=== PATIENT | male | born 1930 | race Caucasian/White ===

== ENCOUNTER 2019-02-01 21:24 | Inpatient (IN) ==
[2019-02-01] MEDS ORDERED: Ondansetron 4 MG/2 ML VIAL IVP ONE (21:34)
[2019-02-01] MEDS ORDERED: 0.9 % Sodium Chloride 500 ML IVC ONE ×2 (21:53→23:17)
[2019-02-01 22:06] LABS: Basophils # 0.1 K/mcL (0.0-0.2); Basophils % 0.4 %; Eosinophils # 0.1 K/mcL (0.0-0.6); Eosinophils % 0.3 %; Hematocrit 33.7 % (37.5-50.1); Hemoglobin 11.3 g/dL (12.9-16.9); Lymphocytes # 1.3 K/mcL (0.6-4.6); Lymphocytes % 7.2 %; Mean Corpuscular HGB Conc 33.5 g/dL (31.6-35.5); Mean Corpuscular Hemoglobin 34.8 pg (28.0-33.3); Mean Corpuscular Volume 103.7 fL (83.0-100.0); Mean Platelet Volume 11.5 fL (9.4-12.4); Monocytes % 11.1 %; Neutrophils # 14.4 K/mcL (1.6-8.9); Nucleated Red Blood Cells 0.7 /100 WBC (0); Platelet Count 193 K/mcL (140-400); Red Blood Count 3.25 M/mcL (4.19-5.50); Red Cell Distribution Width 19.5 % (11.5-14.5)
[2019-02-01 22:16] LABS: INR 1.2; Prothrombin Time 13.5 Seconds (9.4-12.1)
[2019-02-01 22:19] LABS: Activated Partial Thrombo Time 29.8 Seconds (26.0-36.0)
[2019-02-01 22:29] LABS: Alanine Aminotransferase 17 Units/L (7-52); Albumin 4.2 g/dL (3.5-5.7); Albumin/Globulin Ratio 1.4 (1.1-2.2); Alkaline Phosphatase 65 Units/L (34-104); Aspartate Amino Transferase 18 Units/L (13-39); BUN/Creatinine Ratio 19 (6-26); Bilirubin,Direct 0.1 mg/dL (0.0-0.2); Bilirubin,Indirect 0.8 mg/dL (0.0-1.2); Bilirubin,Total 0.9 mg/dL (0.3-1.0); Blood Urea Nitrogen 27 mg/dL (8-23); Calcium 9.1 mg/dL (8.6-10.3); Carbon Dioxide 22 mEq/L (23-29); Chloride 105 mEq/L (98-107); Creatine Kinase 69 Units/L (30-223); Globulin 2.9 g/dL (2.4-3.5); Glucose 234 mg/dL (70-105); Lipase 18 Units/L (11-82); Magnesium 1.9 mg/dL (1.6-2.6); Osmolality,Calculated 301 (280-300); Phosphorous 2.9 mg/dL (2.7-4.5); Potassium 4.2 mEq/L (3.5-5.1); Sodium 139 mEq/L (136-145); Total Protein 7.1 g/dL (6.4-8.9); Troponin I < 0.03 ng/mL (< 0.04); eGFR For African Americans 58 (> 60); eGFR For Non-African Americans 48 (> 60)
--- NOTE | 2019-02-01 22:40 | Emergency Department Note ---
Disposition Clinical Impression: Elevated lactic acid level Sepsis Qualifiers: Sepsis type: sepsis due to unspecified organism Qualified Code(s): A41.9 - Sepsis, unspecified organism Emesis Qualifiers: Vomiting type: unspecified Vomiting Intractability: non-intractable Nausea p resence: without nausea Qualified Code(s): R11.11 - Vomiting without nausea Pneumonia Qualifiers: Pneumonia type: due to unspecified organism Laterality: bilateral Lung loca tion: lower lobe of lung Qualified Code(s): J18.1 - Lobar pneumonia, unspecified organism CKD (chronic kidney disease) Qualifiers: Chronic kidney disease stage: unspecified stage Qualified Code(s): N18.9 - Chronic kidney disease, unspecified Disposition: Admitted As Inpatient Condition: Fair Time of Disposition: 00:05 General Adult HPI - General Chief complaint: ED Nausea/Vomiting/Diarrhea Stated complaint: Vomiting Time Seen by Provider: 02/01/19 21:29 Limitations: no limitations Nursing Notes Reviewed: Yes Vital Signs Reviewed: Yes - History of Present Illness HPI Narrative: Patient is an 88-year-old male with a past medical history of atrial fibrillation currently on Coumadin, diabetes, and high cholesterol presents to the ED for evaluation of shivering and emesis. According to family at bedside patient lives with her brother who is not currently here. They state that around 4 or 5:00 PM this evening the patient was having dinner and he became cold with chills and had shivering of the upper extremities. He stated that shortly after dinner patient was in bed covered in blankets and the family left the home and one family member was rechecking on the patient and he is found in the bathroom sitting down between the toilet and the bathtub and states that he did not recall if he had fallen but he was sitting up looking around and he required assistance getting up and is normally independent with a walker. He stated the patient has also been weaker than normal over the past couple of hours. No recent sick contacts. Patient admits to a productive cough with green sputum that he states is chronic. He denies any abdominal pain. He had one episode of emesis that was nonbloody and nonbilious. No diarrhea. Denies any abdominal pain. No urinary symptoms. Denies chest pain or shortness of breath. The family is unsure if the patient fell to the ground or if he sat down on the ground due to weakness. The patient himself denies any trauma or injury from a fall and denies any pain at this time. - Related Data Home Medications Medication Instructions Recorded Confirmed Allopurinol [Zyloprim] 200 mg PO DAILY 06/24/16 02/01/19 Furosemide [Lasix] 80 mg PO DAILY 06/24/16 02/01/19 Glimepiride [Amaryl] 1 mg PO QAM 06/24/16 02/01/19 Metformin HCl [Glucophage Xr] 750 mg PO QPM MDD with meal. 06/24/16 02/01/19 Metoprolol Tartrate [Lopressor] 100 mg PO BID 06/24/16 06/29/16 Potassium Chloride [Klor-Con] 20 meq PO DAILY 06/24/16 02/01/19 Aspirin Enteric Coated [Aspirin EC] 81 mg PO DAILY 02/01/19 02/01/19 Loratadine [Claritin] 10 mg PO DAILY PRN 02/01/19 02/01/19 Tamsulosin HCl [Flomax] 0.4 mg PO DAILY 02/01/19 02/01/19 Previous Rx's Medication Instructions Recorded MOM Conc [MILK OF MAGNESIA conc] 10 ml PO DAILY PRN #30 ud.liq 06/29/16 Sennosides/Docusate Sodium [Senna 2 each PO BID #60 tablet 06/29/16 Plus] Warfarin [Coumadin] 5 mg PO 1800 #10 tablet 06/29/16 Allergies Allergy/AdvReac Type Severity Reaction Status Date / Time ciprofloxacin [From Cipro] Allergy Hives Verified 02/01/19 23:28 clindamycin Allergy Hives Verified 06/24/16 21:09 diphenhydramine Allergy Hives Verified 06/24/16 21:09 [From Benadryl] doxycycline AdvReac Nausea Verified 02/01/19 23:28 tamsulosin AdvReac Rash Verified 02/01/19 23:28 All systems ED: reviewed and negative except as stated. Review of Systems: As Per HPI Constitutional: Reports: chills, weakness. Denies: fever ENT ED: Denies: congestion Respiratory: Reports: cough (Productive cough that is chronic). Denies: dyspne a, wheezes, hemoptysis Gastrointestinal: Reports: nausea, vomiting. Denies: abdominal pain, diarrhea, constipation, hematemesis, melena, hematochezia Genitourinary: Denies: urgency, dysuria Musculoskeletal: Denies: back pain, neck pain Integumentary: Denies: rash Neurological: Denies: headache, weakness, numbness Past Medical History - Past Medical History Attestation: Yes The following information was validated with the patient. Medical history: Reports: atrial fibrillation, diabetes, hyperlipidemia, hypertension, kidney stones, other (BPH) Psychiatric history: Reports: no psych history - Social History Smoking Status: Never smoker Smokeless Tobacco Status: No Alcohol use: Reports: none Drug use: Reports: none Physical Exam - General Limitations: no limitations - Head Head exam: atraumatic, normocephalic, normal inspection - Eye Eye exam: Present: normal appearance, PERRL, EOMI - ENT ENT exam: normal exam, normal oropharynx, TM's normal bilaterally - Chest Chest inspection: Present: normal inspection, symmetric chest wall rise - Respiratory Respiratory exam: Present: normal lung sounds bilaterally. Absent: respiratory distress, wheezes - Cardiovascular Cardiovascular exam: Present: tachycardia, +S1, +S2 - Abdominal Exam Abdominal exam: Present: soft, Non-Tender, normal bowel sounds. Absent: tenderness, guarding, rebound, rigidity - Extremities Exam Extremities exam: Present: normal inspection, full ROM, pedal edema (1+ bilaterally). Absent: tenderness - Back Exam Back exam: Present: normal inspection, full ROM. Absent: tenderness, CVA tenderness (R), CVA tenderness (L) - Neurological Exam Neurological exam: Present: alert, other (Oriented x2 to person and place) - Psychiatric Psychiatric exam: Present: normal affect, normal mood - Skin Skin exam: Present: warm, dry, intact, normal color Course Course Narrative: Patient is presenting for evaluation of one episode of emesis as well as mild disorientation and potential fall. The patient is denying any pain on exam he is oriented 2. He is not having any focal neurological deficits at this time. He does have a fever as well as tachycardia. He will undergo a workup with the sepsis protocol and obtain lactic as well as blood cultures as well as imaging of his head and neck to evaluate for trauma and a chest x-ray and urine to evaluate for source of infection. He states hemodynamically stable at this time. We will order him a half liter bolus given that he does have mild edema in the bilateral lower extremities however his lungs sound clear. - Reevaluation(s) Reevaluation #1: Patient had a leukocytosis of 18,000 with leftward shift. INR was 1.2. Chem strip panel appreciated a creatinine of 1.41 which appears to be consistent with patient's baseline in the past. His lactic acid was 3.0. Labs otherwise were unremarkable. Urine was negative for infection his chest x-ray was concerning for pneumonia. Patient was given an additional 500 mL bolus totaling 1 L of normal saline bolus while in the ED. He was started on community-acquired coverage for pneumonia with Rocephin and azithromycin. Discussed the patient's case with the hospitalist on-call, Dr. Ahmadi he agreed to accept the patient. The patient's head CT and CT of the cervical spine were negative for any acute injuries. Time: 00:54 Vital Signs Temperature 101.5 F H 02/01/19 21:24 Pulse Rate 113 02/01/19 21:24 Respiratory Rate 20 02/01/19 21:24 Blood Pressure 143/78 02/01/19 21:24 O2 Sat by Pulse Oximetry 93 02/01/19 21:24 Temperature 100.8 F H 02/01/19 23:35 Pulse Rate 90 02/02/19 00:27 Respiratory Rate 19 02/02/19 00:27 Blood Pressure 111/70 02/02/19 00:27 O2 Sat by Pulse Oximetry 96 02/02/19 00:27 Oxygen Delivery Oxygen Delivery Oximizer Medical Decision Making - Medical Records Medical records reviewed: Yes I reviewed the patient's medical records. - Lab Data Lab results reviewed: Yes I reviewed the patient's lab results. Result diagrams: 02/01/19 21:52 02/01/19 21:52 Lab Results 02/01/19 02/01/19 02/01/19 Range/Units 21:52 21:52 21:52 WBC 18.0 H (4.3-11.1) K/mcL RBC 3.25 L (4.19-5.50) M/mcL Hgb 11.3 L (12.9-16.9) g/dL Hct 33.7 L (37.5-50.1) % MCV 103.7 H (83.0-100.0) fL MCH 34.8 H (28.0-33.3) pg MCHC 33.5 (31.6-35.5) g/dL RDW 19.5 H (11.5-14.5) % Plt Count 193 (140-400) K/mcL MPV 11.5 (9.4-12.4) fL Immature Gran % 1.0 (0-4) % Seg Neutrophils % 80.0 % Lymphocytes % 7.2 % Monocytes % 11.1 % Eosinophils % 0.3 % Basophils % 0.4 % Neutrophils # 14.4 H (1.6-8.9) K/mcL Lymphocytes # 1.3 (0.6-4.6) K/mcL Monocytes # 2.0 H (0.0-1.3) K/mcL Eosinophils # 0.1 (0.0-0.6) K/mcL Basophils # 0.1 (0.0-0.2) K/mcL Nucleated RBCs/100 WBC 0.7 H (0) /100 WBC PT (9.4-12.1) Seconds INR APTT (26.0-36.0) Seconds Sodium 139 (136-145) mEq/L Potassium 4.2 (3.5-5.1) mEq/L Chloride 105 (98-107) mEq/L Carbon Dioxide 22 L (23-29) mEq/L BUN 27 H (8-23) mg/dL Creatinine 1.41 H (0.70-1.30) mg/dL Est GFR ( Amer) 58 L (> 60) Est GFR (Non-Af Amer) 48 L (> 60) BUN/Creatinine Ratio 19 (6-26) Glucose 234 H (70-105) mg/dL Calculated Osmolality 301 H (280-300) Lactic Acid 3.0 H (0.5-2.2) mmol/L Calcium 9.1 (8.6-10.3) mg/dL Phosphorus 2.9 (2.7-4.5) mg/dL Magnesium 1.9 (1.6-2.6) mg/dL Total Bilirubin 0.9 (0.3-1.0) mg/dL Direct Bilirubin 0.1 (0.0-0.2) mg/dL Indirect Bilirubin 0.8 (0.0-1.2) mg/dL AST 18 (13-39) Units/L ALT 17 (7-52) Units/L Alkaline Phosphatase 65 (34-104) Units/L Creatine Kinase 69 (30-223) Units/L Troponin I < 0.03 (< 0.04) ng/mL Serum Total Protein 7.1 (6.4-8.9) g/dL Albumin 4.2 (3.5-5.7) g/dL Globulin 2.9 (2.4-3.5) g/dL Albumin/Globulin Ratio 1.4 (1.1-2.2) Lipase 18 (11-82) Units/L Urine Color (Yellow) Urine Clarity (Clear) Urine pH (5.0-8.0) pH Units Ur Specific [place] (1.010-1.025) Urine Protein (Neg-Trace) mg/dL Urine Glucose (UA) (Normal) mg/dL Urine Ketones (Negative) mg/dL Urine Blood (Negative) Urine Nitrite (Negative) Urine Bilirubin (Negative) Urine Urobilinogen (Normal) mg/dL Ur Leukocyte Esterase (Negative) Ur Culture Indicated? (NO) 02/01/19 02/01/19 Range/Units 21:52 23:06 WBC (4.3-11.1) K/mcL RBC (4.19-5.50) M/mcL Hgb (12.9-16.9) g/dL Hct (37.5-50.1) % MCV (83.0-100.0) fL MCH (28.0-33.3) pg MCHC (31.6-35.5) g/dL RDW (11.5-14.5) % Plt Count (140-400) K/mcL MPV (9.4-12.4) fL Immature Gran % (0-4) % Seg Neutrophils % % Lymphocytes % % Monocytes % % Eosinophils % % Basophils % % Neutrophils # (1.6-8.9) K/mcL Lymphocytes # (0.6-4.6) K/mcL Monocytes # (0.0-1.3) K/mcL Eosinophils # (0.0-0.6) K/mcL Basophils # (0.0-0.2) K/mcL Nucleated RBCs/100 WBC (0) /100 WBC PT 13.5 H (9.4-12.1) Seconds INR 1.2 APTT 29.8 (26.0-36.0) Seconds Sodium (136-145) mEq/L Potassium (3.5-5.1) mEq/L Chloride (98-107) mEq/L Carbon Dioxide (23-29) mEq/L BUN (8-23) mg/dL Creatinine (0.70-1.30) mg/dL Est GFR ( Amer) (> 60) Est GFR (Non-Af Amer) (> 60) BUN/Creatinine Ratio (6-26) Glucose (70-105) mg/dL Calculated Osmolality (280-300) Lactic Acid (0.5-2.2) mmol/L Calcium (8.6-10.3) mg/dL Phosphorus (2.7-4.5) mg/dL Magnesium (1.6-2.6) mg/dL Total Bilirubin (0.3-1.0) mg/dL Direct Bilirubin (0.0-0.2) mg/dL Indirect Bilirubin (0.0-1.2) mg/dL AST (13-39) Units/L ALT (7-52) Units/L Alkaline Phosphatase (34-104) Units/L Creatine Kinase (30-223) Units/L Troponin I (< 0.04) ng/mL Serum Total Protein (6.4-8.9) g/dL Albumin (3.5-5.7) g/dL Globulin (2.4-3.5) g/dL Albumin/Globulin Ratio (1.1-2.2) Lipase (11-82) Units/L Urine Color Yellow (Yellow) Urine Clarity Clear (Clear) Urine pH 6.0 (5.0-8.0) pH Units Ur Specific [place] 1.016 (1.010-1.025) Urine Protein Negative (Neg-Trace) mg/dL Urine Glucose (UA) Normal (Normal) mg/dL Urine Ketones Negative (Negative) mg/dL Urine Blood Negative (Negative) Urine Nitrite Negative (Negative) Urine Bilirubin Negative (Negative) Urine Urobilinogen Normal (Normal) mg/dL Ur Leukocyte Esterase Negative (Negative) Ur Culture Indicated? NO (NO) - Radiology Data Radiology results reviewed: Yes I reviewed the patient's radiology results. Chest X-Ray 02/01/19 21:33 IMPRESSION: Bibasilar airspace disease which could represent pneumonia. Consider follow-up imaging to resolution. Cardiomegaly. D/ / Long Orellana MD / Long Orellana MD Interpreting Provider: Long Orellana MD - EKG Data EKG #1 EKG attestation: Yes I reviewed and interpreted this EKG. EKG results narrative: EKG done at 22:51 shows atrial fibrillation at a rate of 94 bpm. Normal axis. Intervals within normal limits. No signs of ST elevation, depression or new q- waves. Unchanged from EKG performed on June 272015.
[2019-02-01] MEDS ORDERED: Doxycycline 100 MG in 0.9 % Sodium Chloride Mini Bag 100 ML IVPB ONE (23:07)
[2019-02-01] MEDS ORDERED: cefTRIAXone 1,000 MG in Water for inj. (sterile) 10 ML IVP ONE (23:08)
[2019-02-01 23:17] LABS: Bilirubin,Urine Negative (Negative); Blood,Urine Negative (Negative); Clarity,Urine Clear (Clear); Color,Urine Yellow (Yellow); Glucose,Urine (UA) Normal (Normal); Ketones,Urine Negative (Negative); Leukocyte Esterase,Urine Negative (Negative); Nitrite,Urine Negative (Negative); Protein,Urine Negative (Neg-Trace); Specific Gravity,Urine 1.016 (1.010-1.025); Urobilinogen,Urine Normal (Normal)
[2019-02-01] MEDS ORDERED: Azithromycin 500 MG in D5% in Water 250 ML IVPB ONE (23:29)
--- NOTE | 2019-02-02 00:26 | Emergency Department Note ---
Disposition Clinical Impression: Elevated lactic acid level Sepsis Qualifiers: Sepsis type: sepsis due to unspecified organism Qualified Code(s): A41.9 - Sepsis, unspecified organism Emesis Qualifiers: Vomiting type: unspecified Vomiting Intractability: non-intractable Nausea p resence: without nausea Qualified Code(s): R11.11 - Vomiting without nausea Pneumonia Qualifiers: Pneumonia type: due to unspecified organism Laterality: bilateral Lung loca tion: lower lobe of lung Qualified Code(s): J18.1 - Lobar pneumonia, unspecified organism CKD (chronic kidney disease) Qualifiers: Chronic kidney disease stage: unspecified stage Qualified Code(s): N18.9 - Chronic kidney disease, unspecified Disposition: Admitted As Inpatient Condition: Fair Referrals: NONE,PCP [Primary Care Provider] - Time of Disposition: 00:05 General Adult HPI - General Chief complaint: ED Nausea/Vomiting/Diarrhea Stated complaint: Vomiting Time Seen by Provider: 02/01/19 21:29 Source: patient, family Limitations: no limitations Nursing Notes Reviewed: Yes Vital Signs Reviewed: Yes - History of Present Illness Pain Scale: 0 - Related Data Home Medications Medication Instructions Recorded Confirmed Allopurinol [Zyloprim] 200 mg PO DAILY 06/24/16 02/01/19 Furosemide [Lasix] 80 mg PO DAILY 06/24/16 02/01/19 Glimepiride [Amaryl] 1 mg PO QAM 06/24/16 02/01/19 Metformin HCl [Glucophage Xr] 750 mg PO QPM MDD with meal. 06/24/16 02/01/19 Metoprolol Tartrate [Lopressor] 100 mg PO BID 06/24/16 06/29/16 Potassium Chloride [Klor-Con] 20 meq PO DAILY 06/24/16 02/01/19 Aspirin Enteric Coated [Aspirin EC] 81 mg PO DAILY 02/01/19 02/01/19 Loratadine [Claritin] 10 mg PO DAILY PRN 02/01/19 02/01/19 Tamsulosin HCl [Flomax] 0.4 mg PO DAILY 02/01/19 02/01/19 Previous Rx's Medication Instructions Recorded MOM Conc [MILK OF MAGNESIA conc] 10 ml PO DAILY PRN #30 ud.liq 06/29/16 Sennosides/Docusate Sodium [Senna 2 each PO BID #60 tablet 06/29/16 Plus] Warfarin [Coumadin] 5 mg PO 1800 #10 tablet 06/29/16 Allergies Allergy/AdvReac Type Severity Reaction Status Date / Time ciprofloxacin [From Cipro] Allergy Hives Verified 02/01/19 23:28 clindamycin Allergy Hives Verified 06/24/16 21:09 diphenhydramine Allergy Hives Verified 06/24/16 21:09 [From Benadryl] doxycycline AdvReac Nausea Verified 02/01/19 23:28 tamsulosin AdvReac Rash Verified 02/01/19 23:28 Constitutional: Reports: chills, weakness. Denies: fever ENT ED: Denies: congestion Respiratory: Reports: cough (Productive cough that is chronic). Denies: dyspnea, wheezes, hemoptysis Gastrointestinal: Reports: nausea, vomiting. Denies: abdominal pain, diarrhea, constipation, hematemesis, melena, hematochezia Genitourinary: Denies: urgency, dysuria Musculoskeletal: Denies: back pain, neck pain Integumentary: Denies: rash Neurological: Denies: headache, weakness, numbness Past Medical History - Past Medical History Medical history: Reports: atrial fibrillation, diabetes, hyperlipidemia, hypertension, kidney stones, other Psychiatric history: Reports: no psych history - Social History Smoking Status: Never smoker Smokeless Tobacco Status: No Alcohol use: Reports: none Drug use: Reports: none Physical Exam - General Limitations: no limitations Course Vital Signs Temperature 101.5 F H 02/01/19 21:24 Pulse Rate 113 02/01/19 21:24 Respiratory Rate 20 02/01/19 21:24 Blood Pressure 143/78 02/01/19 21:24 O2 Sat by Pulse Oximetry 93 02/01/19 21:24 Temperature 100.8 F H 02/01/19 23:35 Pulse Rate 90 02/01/19 23:35 Respiratory Rate 16 02/01/19 23:35 Blood Pressure 102/61 02/01/19 23:35 O2 Sat by Pulse Oximetry 89 02/01/19 23:35 Oxygen Delivery Oxygen Delivery Nasal Cannula,Oximizer Medical Decision Making - Medical Records Medical records reviewed: Yes I reviewed the patient's medical records. - Lab Data Lab results reviewed: Yes I reviewed the patient's lab results. Result diagrams: 02/01/19 21:52 02/01/19 21:52 Lab Results 02/01/19 02/01/19 02/01/19 Range/Units 21:52 21:52 21:52 WBC 18.0 H (4.3-11.1) K/mcL RBC 3.25 L (4.19-5.50) M/mcL Hgb 11.3 L (12.9-16.9) g/dL Hct 33.7 L (37.5-50.1) % MCV 103.7 H (83.0-100.0) fL MCH 34.8 H (28.0-33.3) pg MCHC 33.5 (31.6-35.5) g/dL RDW 19.5 H (11.5-14.5) % Plt Count 193 (140-400) K/mcL MPV 11.5 (9.4-12.4) fL Immature Gran % 1.0 (0-4) % Seg Neutrophils % 80.0 % Lymphocytes % 7.2 % Monocytes % 11.1 % Eosinophils % 0.3 % Basophils % 0.4 % Neutrophils # 14.4 H (1.6-8.9) K/mcL Lymphocytes # 1.3 (0.6-4.6) K/mcL Monocytes # 2.0 H (0.0-1.3) K/mcL Eosinophils # 0.1 (0.0-0.6) K/mcL Basophils # 0.1 (0.0-0.2) K/mcL Nucleated RBCs/100 WBC 0.7 H (0) /100 WBC PT (9.4-12.1) Seconds INR APTT (26.0-36.0) Seconds Sodium 139 (136-145) mEq/L Potassium 4.2 (3.5-5.1) mEq/L Chloride 105 (98-107) mEq/L Carbon Dioxide 22 L (23-29) mEq/L BUN 27 H (8-23) mg/dL Creatinine 1.41 H (0.70-1.30) mg/dL Est GFR ( Amer) 58 L (> 60) Est GFR (Non-Af Amer) 48 L (> 60) BUN/Creatinine Ratio 19 (6-26) Glucose 234 H (70-105) mg/dL Calculated Osmolality 301 H (280-300) Lactic Acid 3.0 H (0.5-2.2) mmol/L Calcium 9.1 (8.6-10.3) mg/dL Phosphorus 2.9 (2.7-4.5) mg/dL Magnesium 1.9 (1.6-2.6) mg/dL Total Bilirubin 0.9 (0.3-1.0) mg/dL Direct Bilirubin 0.1 (0.0-0.2) mg/dL Indirect Bilirubin 0.8 (0.0-1.2) mg/dL AST 18 (13-39) Units/L ALT 17 (7-52) Units/L Alkaline Phosphatase 65 (34-104) Units/L Creatine Kinase 69 (30-223) Units/L Troponin I < 0.03 (< 0.04) ng/mL Serum Total Protein 7.1 (6.4-8.9) g/dL Albumin 4.2 (3.5-5.7) g/dL Globulin 2.9 (2.4-3.5) g/dL Albumin/Globulin Ratio 1.4 (1.1-2.2) Lipase 18 (11-82) Units/L Urine Color (Yellow) Urine Clarity (Clear) Urine pH (5.0-8.0) pH Units Ur Specific [place] (1.010-1.025) Urine Protein (Neg-Trace) mg/dL Urine Glucose (UA) (Normal) mg/dL Urine Ketones (Negative) mg/dL Urine Blood (Negative) Urine Nitrite (Negative) Urine Bilirubin (Negative) Urine Urobilinogen (Normal) mg/dL Ur Leukocyte Esterase (Negative) Ur Culture Indicated? (NO) 02/01/19 02/01/19 Range/Units 21:52 23:06 WBC (4.3-11.1) K/mcL RBC (4.19-5.50) M/mcL Hgb (12.9-16.9) g/dL Hct (37.5-50.1) % MCV (83.0-100.0) fL MCH (28.0-33.3) pg MCHC (31.6-35.5) g/dL RDW (11.5-14.5) % Plt Count (140-400) K/mcL MPV (9.4-12.4) fL Immature Gran % (0-4) % Seg Neutrophils % % Lymphocytes % % Monocytes % % Eosinophils % % Basophils % % Neutrophils # (1.6-8.9) K/mcL Lymphocytes # (0.6-4.6) K/mcL Monocytes # (0.0-1.3) K/mcL Eosinophils # (0.0-0.6) K/mcL Basophils # (0.0-0.2) K/mcL Nucleated RBCs/100 WBC (0) /100 WBC PT 13.5 H (9.4-12.1) Seconds INR 1.2 APTT 29.8 (26.0-36.0) Seconds Sodium (136-145) mEq/L Potassium (3.5-5.1) mEq/L Chloride (98-107) mEq/L Carbon Dioxide (23-29) mEq/L BUN (8-23) mg/dL Creatinine (0.70-1.30) mg/dL Est GFR ( Amer) (> 60) Est GFR (Non-Af Amer) (> 60) BUN/Creatinine Ratio (6-26) Glucose (70-105) mg/dL Calculated Osmolality (280-300) Lactic Acid (0.5-2.2) mmol/L Calcium (8.6-10.3) mg/dL Phosphorus (2.7-4.5) mg/dL Magnesium (1.6-2.6) mg/dL Total Bilirubin (0.3-1.0) mg/dL Direct Bilirubin (0.0-0.2) mg/dL Indirect Bilirubin (0.0-1.2) mg/dL AST (13-39) Units/L ALT (7-52) Units/L Alkaline Phosphatase (34-104) Units/L Creatine Kinase (30-223) Units/L Troponin I (< 0.04) ng/mL Serum Total Protein (6.4-8.9) g/dL Albumin (3.5-5.7) g/dL Globulin (2.4-3.5) g/dL Albumin/Globulin Ratio (1.1-2.2) Lipase (11-82) Units/L Urine Color Yellow (Yellow) Urine Clarity Clear (Clear) Urine pH 6.0 (5.0-8.0) pH Units Ur Specific [place] 1.016 (1.010-1.025) Urine Protein Negative (Neg-Trace) mg/dL Urine Glucose (UA) Normal (Normal) mg/dL Urine Ketones Negative (Negative) mg/dL Urine Blood Negative (Negative) Urine Nitrite Negative (Negative) Urine Bilirubin Negative (Negative) Urine Urobilinogen Normal (Normal) mg/dL Ur Leukocyte Esterase Negative (Negative) Ur Culture Indicated? NO (NO) - Radiology Data Radiology results reviewed: Yes I reviewed the patient's radiology results. Chest X-Ray 02/01/19 21:33 IMPRESSION: Bibasilar airspace disease which could represent pneumonia. Consider follow-up imaging to resolution. Cardiomegaly. D/ / Long Orellana MD / Long Orellana MD Interpreting Provider: Long Orellana MD Cervical Spine CT 02/01/19 21:51 IMPRESSION: No acute abnormality of the cervical spine. D/ / Alec Dee MD / Alec Dee MD Interpreting Provider: Alec Dee MD Head CT 02/01/19 21:51 IMPRESSION: No acute intracranial abnormality. 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 D/ / Abrahan Spear / Abrahan Spear Interpreting Provider: Abrahan Spear - EKG Data EKG #1 EKG attestation: Yes I reviewed and interpreted this EKG. EKG results narrative: EKG shows atrial fibrillation with ventricular rate of 94. No significant ST segment elevation or depression. Critical Care Time Critical Care Time: Yes Total Critical Care Time: 35 Attestation: Critical care performed: Time is exclusive of separately billable procedures. Time includes: direct patient care, patient reassessment, coordination of patient care, interpretation of data (laboratory data, radiology data, and respiratory data), review of patient's medical records, medical consultation and documentation of patient care. Procedures included in critical care time: Procedures excluded from critical care time: Attestation Statement - Attestation Attestation: I, Laci Pena MD, personally evaluated this patient and discussed their management with the resident physician. I reviewed the resident's note and agree with the documented findings, medical decision making, and plan of care. I reviewed the residents documentation and agree with the residents assessment and plan of care. I have personally had face to face time with the patient. I personally supervised and was present for the quesada/critical portions of the following procedures completed by the resident: EKG interpretation. 88-year-old male presents to the emergency department with a complaint of some chills and shaking and generalized weakness which started earlier this evening. Family found patient sitting on the bathroom floor between the toilet and the ba thtub. He was not confused but was unable to get up. He seemed to have panting respirations. Here in the department the patient is awake alert and oriented. He denies any chest pain or shortness of breath. He did have one episode of nausea and some vomiting that no further vomiting. He denies abdominal pain. He denies hitting his head. He is on Coumadin for chronic atrial fibrillation. On examination patient is a well-developed obese elderly male in no acute distress. He is alert and oriented 3. There is no cyanosis or diaphoresis. Head is atraumatic. Mucous membranes are moist. Neck is supple. Breath sounds are clear and equal bilaterally. Heart irregularly irregular with a normal rate. Abdomen is soft and nontender with normal bowel sounds. No gross focal neurological deficits. EKG shows atrial fibrillation with ventricular rate of 94. No significant ST segment elevation or depression. Chest x-ray shows bibasilar airspace disease which could represent pneumonia. CT of the head and cervical spine was negative. Labs reviewed. WBC 18. Lactic acid 3.0. Blood cultures obtained. Antibiotics initiated for community-acquired pneumonia. Patient did not receive the 30 mL/kg fluid bolus due to his age and chronic atrial fibrillation. He has not been hypotensive. Repeat lactic acid was ordered. The hospitalist, Dr. Ahmadi, was consulted and accepted admission of the patient.
[2019-02-02] MEDS ORDERED: Ondansetron 4 MG/2 ML VIAL IVP PRN (00:31)
[2019-02-02] MEDS ORDERED: Naloxone 0.4 MG/ML INJ IVP PRN (00:31)
[2019-02-02] MEDS ORDERED: *HR* Dextrose 50 % in Water (Syg) 50 ML SYRINGE IVP PRN (00:38)
[2019-02-02] MEDS ORDERED: Dextrose Gel 15 GM/37.5 ML TUBE PO PRN ×2 (00:38)
[2019-02-02] MEDS ORDERED: D5% in Water 1,000 ML IVC PRN (00:38)
--- NOTE | 2019-02-02 01:45 | Internal Med History&Physical ---
Date of Encounter: 02/02/19 Time of Encounter: 01:40 Internal Medicine - H&P: HPI Chief complaint: Chills History of present illness: Mr. Acosta is a 88 year old male with a past medical history of atrial fibrillation currently on Coumadin, diabetes, and high cholesterol presents to the ED for evaluation of shivering and vomiting. They state that around 4 or 5:00 PM this evening the patient was having dinner and suddenly became cold with chills and had shivering of the upper extremities. Patient went to bed shortly thereafter and covered himself in blankets . Soon after that patient went to the restroom and was subsequently found in the bathroom sitting down wedged between the toilet and bathtub. Patient states that he did not lose consciousness but slid down and could not get up. He is normally independent with a walker. He stated the has also been weaker than normal over the past couple of hours. No recent sick contacts. Patient admits to a productive cough with green sputum but states that it is chronic. He denies any abdominal pain. He had one episode of emesis that was nonbloody and nonbilious shortly after he was helped up in the bathroom. No diarrhea. Denies any abdominal pain. No urinary symptoms. Denies chest pain or shortness of breath. The family is unsure if the patient fell to the ground or if he sat down on the ground due to weakness. The patient himself denies any trauma or injury from a fall and denies any pain at this time. Family members noted some confusion on the way to the hospital. After initial assessment on arrival patient was found to be febrile with a temperature of 100.8; blood pressure 143/78 and heart rate of 113. Patient had a leukocytosis of 18.0 INR was 1.2. ; creatinine of 1.41 which appears to be consistent with patient's baseline in the past. His lactic acid was 3.0. Labs otherwise were unremarkable. Urine was negative for infection his chest x-ray was concerning for pneumonia. The patient's head CT and CT of the cervical spine were negative for any acute injuries. Patient was given an additional 500 mL bolus totaling 1 L of normal saline bolus while in the ED. He was started on community-acquired coverage for pneumonia with Rocephin and azithromycin. Past Med Surg Social Fam HX - Past Medical History Medical history: atrial fibrillation, diabetes, hyperlipidemia, hypertension, kidney stones, other Additional medical history: rhabodymylisis Psychiatric history: no psych history - Past Surgical History Additional surgical history: left shoulder replacement in 2007, right shoulder in - Social History Smoking Status: Never smoker Smokeless Tobacco Status: No Alcohol use: none Drug use: none Internal Medicine - H&P: Meds Allopurinol [Zyloprim] 200 mg PO DAILY 06/24/16 [History] Furosemide [Lasix] 80 mg PO DAILY 06/24/16 [History] Glimepiride [Amaryl] 1 mg PO QAM 06/24/16 [History] Metformin HCl [Glucophage Xr] 750 mg PO QPM MDD with meal. 06/24/16 [History] Metoprolol Tartrate [Lopressor] 100 mg PO BID 06/24/16 [History] Potassium Chloride [Klor-Con] 20 meq PO DAILY 06/24/16 [History] MOM Conc [MILK OF MAGNESIA conc] 10 ml PO DAILY PRN #30 [id number] 06/29/16 [Rx] Sennosides/Docusate Sodium [Senna Plus] 2 each PO BID #60 tablet 06/29/16 [Rx] Warfarin [Coumadin] 5 mg PO 1800 #10 tablet 06/29/16 [Rx] Aspirin Enteric Coated [Aspirin EC] 81 mg PO DAILY 02/01/19 [History] Loratadine [Claritin] 10 mg PO DAILY PRN 02/01/19 [History] Tamsulosin HCl [Flomax] 0.4 mg PO DAILY 02/01/19 [History] Allergy/AdvReac Type Severity Reaction Status Date / Time ciprofloxacin [From Cipro] Allergy Hives Verified 02/01/19 23:28 clindamycin Allergy Hives Verified 06/24/16 21:09 diphenhydramine Allergy Hives Verified 06/24/16 21:09 [From Benadryl] doxycycline AdvReac Nausea Verified 02/01/19 23:28 tamsulosin AdvReac Rash Verified 02/01/19 23:28 All Systems PM: A 10-system review of systems was performed and is negative for pertinent findings except as documented above in the HPI. - Constitutional Constitutional: no chills, no fever(s), no night sweats - EENT Eyes: no change in vision, no discharge, no pain, no photophobia Ears: no ear discharge, no ear pain, no tinnitus Nose, mouth and throat: no dysphagia, no nasal discharge, no neck pain, no sore throat - Cardiovascular Cardiovascular ROS IM: no chest pain, no diaphoresis, no dyspnea, no lightheadedness, no palpitations, no syncope - Respiratory Respiratory: no cough, no dyspnea, no wheezing, no excessive phlegm production - Gastrointestinal Gastrointestinal: no abdominal pain, no diarrhea, no hematemesis, no hematochezia, no melena, no nausea, no vomiting - Musculoskeletal Musculoskeletal ROS IM: no numbness, no tingling - Integumentary Integumentary IM: no rash, no unusual bruising - Neurological Neurological ROS: no confusion, no convulsions, no focal weakness, no numbness, no tingling, no tremor(s) - Hematologic/Lymphatic Hematologic/Lymphatic: no easy bruising - Constitutional Vitals: Temp Pulse Resp BP Pulse Ox 97.6 F 88 16 110/61 94 02/02/19 01:26 02/02/19 01:26 02/02/19 01:26 02/02/19 01:02/02/19 01:26 Exam: General: Alert and oriented 3 Skin:Normal color, no rash, no lesions. HEENT:EOM, pupils equal, round and reactive. Cardiovascular:Normal S1 & S2, no rubs, murmurs or gallops. No JVD. Pulse r egular. Lungs:Normal breath sounds, no wheezes or crackles. Abdomen:Soft, non-tender, no rigidity. Extremities:No deformity, no edema or tenderness, no joint swelling or clubbing. Neurological:Normal cognition and motor skills. Pulses:Carotid and radial pulses normal +2. Rest of the physical exam is non contributory Internal Med - H&P Results - Labs CBC & Chem 7: 02/02/19 04:30 02/02/19 04:30 Labs: Short CBC 02/01/19 Range/Units 21:52 WBC 18.0 H (4.3-11.1) K/mcL Hgb 11.3 L (12.9-16.9) g/dL Hct 33.7 L (37.5-50.1) % Plt Count 193 (140-400) K/mcL Neutrophils # 14.4 H (1.6-8.9) K/mcL BMP 02/01/19 21:52 Sodium 139 Potassium 4.2 Chloride 105 Carbon Dioxide 22 L BUN 27 H Creatinine 1.41 H Glucose 234 H Calcium 9.1 Cardiac Enzymes 02/01/19 Range/Units 21:52 Troponin I < 0.03 (< 0.04) ng/mL Liver Function 02/01/19 Range/Units 21:52 Total Bilirubin 0.9 (0.3-1.0) mg/dL Direct Bilirubin 0.1 (0.0-0.2) mg/dL AST 18 (13-39) Units/L ALT 17 (7-52) Units/L Alkaline Phosphatase 65 (34-104) Units/L Albumin 4.2 (3.5-5.7) g/dL Urine 02/01/19 Range/Units 23:06 Urine Color Yellow (Yellow) Urine Clarity Clear (Clear) Urine pH 6.0 (5.0-8.0) pH Units Ur Specific [place] 1.016 (1.010-1.025) Urine Protein Negative (Neg-Trace) mg/dL Urine Glucose (UA) Normal (Normal) mg/dL - Impressions ITS Impressions Chest X-Ray 02/01/19 21:33 IMPRESSION: Bibasilar airspace disease which could represent pneumonia. Consider follow-up imaging to resolution. Cardiomegaly. D/ / Long Orellana MD / Long Orellana MD Interpreting Provider: Long Orellana MD Cervical Spine CT 02/01/19 21:51 IMPRESSION: No acute abnormality of the cervical spine. D/ / Alec Dee MD / Alec Dee MD Interpreting Provider: Alec Dee MD Head CT 02/01/19 21:51 IMPRESSION: No acute intracranial abnormality. [id number] chronic small ischemic disease is involutional changes. D/ / Abrahan Spear / Abrahan Spear Interpreting Provider: Abrahan Spear - Assessment and Plan (1) Pneumonia Current Visit: Yes Status: Acute Assessment and plan: Patient presenting with fever, leukocytosis and chest x-ray showing bibasilar airspace disease possibly representing pneumonia. Found to be mildly hypoxemic in the high 80s on room air in the ED. Patient started on azithromycin and ceftriaxone. -Continue antibiotics -Follow-up blood cultures and urine antigens -Continue supportive care Qualifiers: Pneumonia type: due to unspecified organism Laterality: bilateral Lung location: lower lobe of lung Qualified Code(s): J18.1 - Lobar pneumonia, unspecified organism (2) Elevated lactic acid level Current Visit: Yes Status: Acute Assessment and plan: Elevated lactic acid of 3.0. Patient received a total of 1 L fluid bolus in the ED. Repeat lactic acid 2.9 -We will give an additional 500 liter fluid bolus challenge -Recheck lactic acid in the morning (3) Emesis Current Visit: Yes Status: Acute Assessment and plan: Antiemetics as needed. Qualifiers: Vomiting type: unspecified Vomiting Intractability: non-intractable Nausea presence: without nausea Qualified Code(s): R11.11 - Vomiting without nausea (4) Acute kidney injury Current Visit: No Status: Chronic Assessment and plan: Patient creatinine found to be 1.41. Baseline appears to be closer to 1.2. -Any fluid support and reassess (5) Anemia Current Visit: No Status: Chronic Assessment and plan: Macrocytic anemia. Appears to be chronic and at baseline. We will monitor. Qualifiers: Anemia type: unspecified type Qualified Code(s): D64.9 - Anemia, unspecified (6) Atrial fibrillation Current Visit: No Status: Chronic Assessment and plan: History of atrial fibrillation rate controlled on anticoagulation. -Continue metoprolol. -Continue warfarin with pharmacy to dose. Qualifiers: Atrial fibrillation type: chronic Qualified Code(s): I48.2 - Chronic atrial fibrillation (7) Diabetes mellitus Current Visit: No Status: Chronic Assessment and plan: History of type 2 diabetes. Blood glucose 234. -We will start patient on sliding scale plus basal insulin with blood glucose checks. 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 Repeat lactic acid at 2.9 from 3. -We will give an additional 500 mg fluid bolus and resume maintenance fluids -Continue antibiotics. (9) DVT prophylaxis Current Visit: No Status: Acute Assessment and plan: Patient currently on warfarin. INR found to be 1.2 - Time Spent With Patient Total time spent is greater than 50% in coordination of care (as documented) at patient's floor/unit and/or counseling patient:
[2019-02-02] MEDS: Insulin DETEMIR 100 UNIT/ML X5UNITS SQ SCH ×2 (02:19→22:29)
[2019-02-02] MEDS: Insulin LISPRO 300 UNITS/3 ML VIAL SQ SCH ×4 (02:20→16:04)
[2019-02-02] MEDS: 0.9 % Sodium Chloride 1,000 ML IVC SCH ×2 (02:21→16:04)
[2019-02-02 05:27] LABS: Basophils % 0.2 %; Eosinophils % 0.1 %; Hematocrit 31.3 % (37.5-50.1); Hemoglobin 10.2 g/dL (12.9-16.9); Immature Granulocytes % 0.9 % (0-4); Lymphocytes # 1.9 K/mcL (0.6-4.6); Lymphocytes % 11.1 %; Mean Corpuscular HGB Conc 32.6 g/dL (31.6-35.5); Mean Corpuscular Hemoglobin 35.3 pg (28.0-33.3); Mean Corpuscular Volume 108.3 fL (83.0-100.0); Mean Platelet Volume 12.1 fL (9.4-12.4); Monocytes % 17.3 %; Neutrophils # 12.2 K/mcL (1.6-8.9); Nucleated Red Blood Cells 0.5 /100 WBC (0); Platelet Count 176 K/mcL (140-400); Red Blood Count 2.89 M/mcL (4.19-5.50); Red Cell Distribution Width 19.5 % (11.5-14.5); Segmented Neutrophils % 70.4 %; White Blood Count 17.4 K/mcL (4.3-11.1)
[2019-02-02 05:30] LABS: INR 1.2; Prothrombin Time 13.6 Seconds (9.4-12.1)
[2019-02-02 05:53] LABS: Albumin 3.8 g/dL (3.5-5.7); Albumin/Globulin Ratio 1.6 (1.1-2.2); Bilirubin,Total 0.6 mg/dL (0.3-1.0); Calcium 8.4 mg/dL (8.6-10.3); Globulin 2.4 g/dL (2.4-3.5); Potassium 4.1 mEq/L (3.5-5.1); Total Protein 6.2 g/dL (6.4-8.9); Troponin I 0.03 ng/mL (< 0.04)
[2019-02-02] MEDS ORDERED: Loratadine 10 MG TABLET PO PRN (08:56)
--- NOTE | 2019-02-02 08:56 | Event Note ---
Date of Encounter: 02/02/19 Time of Encounter: 08:48 Mr. Acosta is a 88 year old male with a past medical history of atrial fibrillation currently on Coumadin, diabetes, and high cholesterol presents to the ED for evaluation of shivering and vomiting. After initial assessment on arrival patient was found to be febrile with a temperature of 100.8; blood pressure 143/78 and heart rate of 113. Patient had a leukocytosis of 18.0 INR was 1.2. ; creatinine of 1.41 which appears to be consistent with patient's baseline in the past. His lactic acid was 3.0. Labs otherwise were unremarkable. Urine was negative for infection his chest x-ray was concerning for pneumonia. The patient's head CT and CT of the cervical spine were negative for any acute injuries. Patient was given an additional 500 mL bolus totaling 1 L of normal saline bolus while in the ED. He was started on community-acquired coverage for pneumonia with Rocephin and azithromycin. (1) possible bacterial Pneumonia, he had pneumovaccine, flu shots, no hx of recent PNA, conitnue current ATB Current Visit: Yes Status: Acute Assessment and plan: Patient presenting with fever, leukocytosis and chest x-ray showing bibasilar airspace disease possibly representing pneumonia. Found to be mildly hypoxemic in the high 80s on room air in the ED. Patient started on azithromycin and ceftriaxone. -Continue antibiotics -Follow-up blood cultures and urine antigens -Continue supportive care Qualifiers: Pneumonia type: due to unspecified organism Laterality: bilateral Lung location: lower lobe of lung Qualified Code(s): J18.1 - Lobar pneumonia, unspecified organism (2) severe sepsis with T100.8, WBC 18K, HR 113, Elevated lactic acid level from pneumonia, improving Current Visit: Yes Status: Acute Assessment and plan: Elevated lactic acid of 3.0. Patient received a total of 1 L fluid bolus in the ED. Repeat lactic acid 2.9 -We will give an additional 500 liter fluid bolus challenge -Recheck lactic acid in the morning (3) Emesis, resolved Current Visit: Yes Status: Acute Assessment and plan: Antiemetics as needed. 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 Baseline appears to be closer to 1.2. -Any fluid support and reassess (5) Anemia Current Visit: No Status: Chronic Assessment and plan: Macrocytic anemia. Appears to be chronic and at baseline. We will monitor. Qualifiers: Anemia type: unspecified type Qualified Code(s): D64.9 - Anemia, unspecified (6) Atrial fibrillation Current Visit: No Status: Chronic Assessment and plan: History of atrial fibrillation rate controlled on anticoagulation. -Continue metoprolol. -Continue warfarin with pharmacy to dose. Qualifiers: Atrial fibrillation type: chronic Qualified Code(s): I48.2 - Chronic atrial fibrillation (7) Diabetes mellitus Current Visit: No Status: Chronic Assessment and plan: History of type 2 diabetes. Blood glucose 234. -We will start patient on sliding scale plus basal insulin with blood glucose checks. Qualifiers: Diabetes mellitus type: type 2 Diabetes mellitus tank terminal gauger insulin use: without tank terminal gauger use Diabetes mellitus complication status: without complication Qualified Code(s): E11.9 - Type 2 diabetes mellitus without complications (8) Obesity with BMI 35 (9) DVT prophylaxis Current Visit: No Status: Acute Assessment and plan: Patient currently on warfarin. INR found to be 1.2
[2019-02-02] MEDS: Aspirin Enteric Coated 81 MG Tablet PO SCH (09:22)
[2019-02-02] MEDS: cefTRIAXone 1,000 MG in Water for inj. (sterile) 10 ML IVP SCH (09:23)
[2019-02-02] MEDS: Azithromycin 500 MG in D5% in Water 250 ML IVPB SCH (09:25)
[2019-02-02] MEDS: *HR* Glimepiride 2 MG TABLET PO SCH (09:29)
--- NOTE | 2019-02-02 14:40 | Electrocardiograph Report ---
[address] [address] Test Date: 2019-02-01 Pat Name: Israle Acosta Department: [id number] Room: 2A14 Gender: M Weed Eradicator: : 1930 Requested By: Steve Christine Order Number: [id number] Reading MD: Andrea Lopez Measurements Intervals [place] Rate: 94 P: [place]: QRS: 132 QRSD: 102 T: 12 QT: 359 QTc: 449 Interpretive Statements Atrial fibrillation Right axis deviation Borderline low voltage, extremity leads BASELINE ARTIFACT Electronically Signed On 02-02-2019 14:38:56 EDT by Andrea Lopez
[2019-02-02] MEDS ORDERED: *HR* Warfarin 5 MG TABLET PO SCH (18:00)
[2019-02-02] MEDS ORDERED: Warfarin perPT PO PRN (18:00)
[2019-02-02] MEDS ORDERED: *HR* Warfarin 5 MG TABLET PO ONE (18:00)
[2019-02-02] MEDS ORDERED: cefTRIAXone 1,000 MG in Water for inj. (sterile) 10 ML IVP SCH (20:00)
[2019-02-02] MEDS ORDERED: Azithromycin 500 MG in D5% in Water 250 ML IVPB SCH (20:00)
[2019-02-03 06:00] LABS: Basophils % 0.2 %; Eosinophils # 0.1 K/mcL (0.0-0.6); Eosinophils % 0.8 %; Hematocrit 29.1 % (37.5-50.1); Hemoglobin 9.1 g/dL (12.9-16.9); Lymphocytes # 1.8 K/mcL (0.6-4.6); Lymphocytes % 20.6 %; Mean Corpuscular HGB Conc 31.3 g/dL (31.6-35.5); Mean Corpuscular Hemoglobin 34.5 pg (28.0-33.3); Mean Corpuscular Volume 110.2 fL (83.0-100.0); Mean Platelet Volume 12.1 fL (9.4-12.4); Monocytes # 1.9 K/mcL (0.0-1.3); Monocytes % 21.9 %; Neutrophils # 4.8 K/mcL (1.6-8.9); Nucleated Red Blood Cells 0.8 /100 WBC (0); Platelet Count 146 K/mcL (140-400); Red Blood Count 2.64 M/mcL (4.19-5.50); Red Cell Distribution Width 19.8 % (11.5-14.5); Segmented Neutrophils % 55.5 %
[2019-02-03 06:08] LABS: White Blood Count 8.7 K/mcL (4.3-11.1)
[2019-02-03 06:16] LABS: INR 1.2; Prothrombin Time 13.7 Seconds (9.4-12.1)
[2019-02-03 06:19] LABS: Calcium 7.9 mg/dL (8.6-10.3); Magnesium 2.1 mg/dL (1.6-2.6)
[2019-02-03 06:26] LABS: Anisocytosis 1+ (Not Present); Hypochromasia Present (Not Present); Macrocytosis Present (Not Present); Platelet Estimate Decreased (Normal)
[2019-02-03 06:27] LABS: Reactive Lymphocytes Present (Not Present)
[2019-02-03] MEDS: cefTRIAXone 1,000 MG in Water for inj. (sterile) 10 ML IVP SCH (07:37)
[2019-02-03] MEDS: Aspirin Enteric Coated 81 MG Tablet PO SCH (07:38)
[2019-02-03] MEDS: Insulin LISPRO 300 UNITS/3 ML VIAL SQ SCH ×3 (07:38→15:42)
[2019-02-03] MEDS: *HR* Glimepiride 2 MG TABLET PO SCH (07:38)
[2019-02-03] MEDS: Azithromycin 500 MG in D5% in Water 250 ML IVPB SCH (07:39)
[2019-02-03] MEDS: Furosemide 40 MG TABLET PO SCH (07:55)
[2019-02-03] MEDS ORDERED: Azithromycin 250 MG TABLET PO SCH (09:00)
--- NOTE | 2019-02-03 10:47 | Internal Med Progress Note ---
Hospitalist Progress Note - Encounter Date of Encounter: 02/03/19 Time of Encounter: 10:46 - Subjective Interval History: I have seen and evaluated the patient at bedside. patient reports feeling weak, stated the tremors he had when he presented to the ED have resolved. denies chest pain, nausea, vomiting or shortness of breath. - Exam Vitals: Temp Pulse Resp BP Pulse Ox 97.7 F 89 16 113/63 95 02/03/19 07:10 02/03/19 07:10 02/03/19 07:10 02/03/19 07:10 02/03/19 07:10 Exam: Vitals: Reviewed General: Alert and oriented x4. In mild distress due to generalized weakness Cardiovascular: RRR, normal S1 & S2, no rubs, murmurs or gallops. Lungs: CTA b/l, no wheezes or crackles. Abdomen: Obese, soft, non-tender, no rigidity. Extremities: Warmth, and mild erythema on the left lower extr, no tenderness to touch. Neurological: Normal cognition and motor skills. Rest of the physical exam is non contributory - Assessment and Plan (1) Acute kidney injury Current Visit: No Status: Chronic Assessment and Plan: kidney function at baseline when compared with previous admissions. patient has received 3 litters of fluids replacement. will resume furosemide at a lower dose. will re-assess kidney function tomorrow morning. (2) Atrial fibrillation Current Visit: No Status: Chronic Assessment and Plan: rate controlled on a bb, on warfarin per pharmacy protocol. (3) Diabetes mellitus Current Visit: No Status: Chronic Assessment and Plan: blood sugar is well controlled. patient is on levemir 18 nuits hs and glimiperide 1mg/PO daily. lispro low dose sliding scale ac. carbs controlled diet (4) Anemia Current Visit: No Status: Chronic Assessment and Plan: H&H stable. will monitor and transfuse per protocol. (5) Pneumonia Current Visit: Yes Status: Acute Assessment and Plan: R/XR chest 1V portable IMPRESSION: Bibasilar airspace disease which could represent pneumonia. Consider follow-up imaging to resolution. Cardiomegaly. Plan: patient is on azithromycin, and ceftriaxone. Legionella and strep pneumonia ordered blood culture: no growth to date incentive spirometry (6) Sepsis Current Visit: Yes Status: Resolved Assessment and Plan: likely due to pneumonia. patient with elevated lactic acid, tachycardic and febrile on presentation (7) Cellulitis Current Visit: Yes Status: Acute Assessment and Plan: possible cellulitis of the left lower extr. erythema, warmth, mild edema and tenderness on the left lower extr. ESR and CRP ordered. on empiric IV antibi otics. DVT Prophylaxis: intermittent pneumatic compression - Summary of Assessment and Plan Summary of Assessment and Plan: patient to remain in the hospital on IV antibiotics. potential discharge to SNF/ECF tomorrow. - Time Spent with Patient Total time spent is greater than 50% in coordination of care (as documented) at patient's floor/unit and/or counseling patient: Greater than 35 minutes (40) Plan of Care Discussed with: patient (and the nurse.) Internal Medicine: Result - Labs CBC & Chem 7: 02/03/19 04:38 02/03/19 04:38 Labs: Short CBC 02/03/19 Range/Units 04:38 WBC 8.7 (4.3-11.1) K/mcL Hgb 9.1 L (12.9-16.9) g/dL Hct 29.1 L (37.5-50.1) % Plt Count 146 (140-400) K/mcL Neutrophils # 4.8 (1.6-8.9) K/mcL BMP 02/03/19 04:38 Sodium 139 Potassium 4.0 Chloride 106 Carbon Dioxide 24 BUN 30 H Creatinine 1.60 H Glucose 150 H Calcium 7.9 L - ABG Interpretation ABG results: PT/INR, D-dimer PT 13.7 Seconds (9.4-12.1) H 02/03/19 04:38 Consult Discharge Plan - Plan Referrals: NONE,PCP [Primary Care Provider] - (2) Atrial fibrillation Qualifiers: Atrial fibrillation type: chronic Qualified Code(s): I48.2 - Chronic atrial fibrillation (3) Diabetes mellitus Qualifiers: Diabetes mellitus type: type 2 Diabetes mellitus custodial insulin use: without custodial use Diabetes mellitus complication status: without complication Qualified Code(s): E11.9 - Type 2 diabetes mellitus without complications (4) Anemia Qualifiers: Anemia type: unspecified type Qualified Code(s): D64.9 - Anemia, unspecified (5) Pneumonia Qualifiers: Pneumonia type: due to unspecified organism Laterality: bilateral Lung location: lower lobe of lung Qualified Code(s): J18.1 - Lobar pneumonia, unspecified organism (6) Sepsis Qualifiers: Sepsis type: sepsis due to unspecified organism Qualified Code(s): A41.9 - Sepsis, unspecified organism (7) Cellulitis Qualifiers: Site of cellulitis: extremity Site of cellulitis of extremity: lower extremity Laterality: left Qualified Code(s): L03.116 - Cellulitis of left lower limb
--- NOTE | 2019-02-03 13:14 | Cardiology Consult Note ---
<Carin Tran - Last Filed: 02/03/19 13:06> Date of Encounter: 02/03/19 Time of Encounter: 13:00 Assessment and Plan (1) Pneumonia Current Visit: Yes Status: Acute Per cardiology: -Admitted with pneumonia. -Management per primary service. Qualifiers: Pneumonia type: due to unspecified organism Laterality: bilateral Lung location: lower lobe of lung Qualified Code(s): J18.1 - Lobar pneumonia, unspecified organism (2) Atrial fibrillation Current Visit: No Status: Chronic Per cardiology: -Known chronic a.fib. -On BB, HR controlled. -[id number] score 4(age2, HTN, DM). Had not been taking anticoagulation due to shoulder pain. However patient has now agreed to resume anticoagulation. Coumadin has been started pharmacy to dose. -TTE pending. -Per family at bedside, if patient has recurrence of shoulder pain while on coumadin, patient would like to start eliquis. -Continue BB, Continue coumadin. -If no significant valvular dysfunction on TTE, ok for eliquis if needed, if patient does not tolerate coumadin. Qualifiers: Atrial fibrillation type: chronic Qualified Code(s): I48.2 - Chronic atrial fibrillation Discussion w patient/family: The assessment and plan as outlined above was discussed with the patient and/or family members who expressed understanding and agreement. All questions were answered. Thank you for involving us in the care of your patient. Please call with any questions. Discussed and reviewed with History of Present Illness Consult date: 02/02/19 Requesting physician: Ksenia Smalls Consult reason: anticoagulation recommendations Chief complaint: weakness, fever, tremors History of present illness: Mr. Acosta is a 88 year old male with a relevant past medical history of a.fib, HTN, BPH, depression, DM, syncope, OA, CHF, diabetic neuropathy, HLD, who presented to [facility] with complaints of fever, weakness, fall, and tremors. Patient has been diagnosed with pneumonia. Cardiology was consulted for anticoagulation recommendations. Patient states that he had been on coumadin for years, however stopped due to shoulder pain. Patient states he is not sure if stopping the coum susana helped his shoulder pain. Patient has just been taking ASA 81mg. Denies bleeding or blood loss. Reports he does not regularly follow with a pole sander operator, just follows with his PCP. Past Med Surg Social Fam HX - Past Medical History Attestation: Yes The following information was validated with the patient. Source: patient, old records reviewed Medical history: atrial fibrillation, diabetes, hyperlipidemia, hypertension, kidney stones, other Additional medical history: rhabodymylisis Psychiatric history: no psych history - Past Surgical History Additional surgical history: left shoulder replacement in 2006, right shoulder in - Social History Smoking Status: Never smoker Smokeless Tobacco Status: No Alcohol use: none Drug use: none Medications and Allergies Allopurinol [Zyloprim] 200 mg PO DAILY 06/24/16 [History] Furosemide [Lasix] 80 mg PO DAILY 06/24/16 [History] Glimepiride [Amaryl] 1 mg PO QAM 06/24/16 [History] Metformin HCl [Glucophage Xr] 750 mg PO QPM MDD with meal. 06/24/16 [History] Potassium Chloride [Klor-Con] 20 meq PO DAILY 06/24/16 [History] MOM Conc [MILK OF MAGNESIA conc] 10 ml PO DAILY PRN #30 ud.liq 06/29/16 [Rx] Warfarin [Coumadin] 5 mg PO 1800 #10 tablet 06/29/16 [Rx] Aspirin Enteric Coated [Aspirin EC] 81 mg PO BID 02/01/19 [History] Loratadine [Claritin] 10 mg PO DAILY PRN 02/01/19 [History] Metoprolol [Lopressor] 100 mg PO BID 02/02/19 [History] Sennosides/Docusate Sodium [Senna Plus] 2 each PO BID PRN 02/02/19 [History] Allergy/AdvReac Type Severity Reaction Status Date / Time ciprofloxacin [From Cipro] Allergy Hives Verified 02/01/19 23:28 clindamycin Allergy Hives Verified 06/24/16 21:09 diphenhydramine Allergy Hives Verified 06/24/16 21:09 [From Benadryl] doxycycline AdvReac Nausea Verified 02/01/19 23:28 tamsulosin AdvReac Rash Verified 02/01/19 23:28 All Systems Review: The remainder of the systems were reviewed and are negative - Constitutional Constitutional: fever(s) - Cardiovascular Cardiovascular: as per HPI Physical Examination Vital Signs, Last 4 Hours Temp Pulse Resp BP Pulse Ox 02/03/19 11:03 98.9 F 83 16 109/51 90 General: Conversant, No Apparent Distress HEENT: Atraumatic, Normocephaly, Mucus Membranes Moist Neck: No JVD, Normal carotid pulses Cardiac: Normal S1 and S2, No Murmur, Other (Irregularly irregular) Lungs: Normal Breath Sounds, No Wheeze, Rales, Rhonchi Neuro: Alert and responsive, No focal deficits noted Abdomen: Soft, Non-Tender Skin: No rashes noted on visualized skin Musculoskeletal: No Chest Wall Tenderness Extremities: No Clubbing, No Cyanosis, No Edema, Normal Pulses Results 02/03/19 04:38 02/03/19 04:38 Lab Results Active Medications Allopurinol (Zyloprim) 200 mg PO DAILY KEN Stop: 08/04/19 09:01 Last Admin: 02/03/19 07:38 Dose: 200 mg Documented by: Aspirin (Aspirin Ec) 81 mg PO DAILY KEN Stop: 08/04/19 09:01 Last Admin: 02/03/19 07:38 Dose: 81 mg Documented by: Azithromycin (Zithromax) 500 mg PO DAILY KEN Stop: 08/06/19 09:01 Dextrose/Water (Dextrose 50% (Syg)) 25 ml IVP AD PRN PRN Reason: Hypoglycemia Stop: 08/04/19 00:39 Furosemide (Lasix) 40 mg PO DAILY KEN Stop: 08/05/19 09:01 Last Admin: 02/03/19 07:55 Dose: 40 mg Documented by: Glimepiride (Amaryl) 1 mg PO DAILY@0800 KEN Stop: 08/06/19 08:01 Glucagon (Glucagen) 1 mg IM ONCE PRN PRN Reason: Hypoglycemia Stop: 08/04/19 00:39 Glucose (Gluctose) 15 gm PO ONCE PRN PRN Reason: Hypoglycemia Stop: 08/04/19 00:39 Glucose (Gluctose) 30 gm PO ONCE PRN PRN Reason: Hypoglycemia Stop: 08/04/19 00:39 Dextrose (Dextrose 5%) 1,000 mls @ 100 mls/hr IVC .Q10H PRN PRN Reason: HYPOGLYCEMIA Stop: 08/04/19 00:39 Ceftriaxone Sodium 1,000 mg/ (Sterile Water) 10 mls @ 600 mls/hr IVP Q24H KEN Stop: 08/04/19 09:01 Last Admin: 02/03/19 07:37 Dose: 600 mls/hr Documented by: Insulin Detemir (Levemir) 18 unit 0.15 unit/kg (18 unit) SQ HS [facility] Stop: 08/04/19 00:46 Last Admin: 02/02/19 22:29 Dose: 18 unit Documented by: Insulin Human Lispro (Humalog) 0 units SQ TIDAC [facility]; Protocol Stop: 08/04/19 00:46 Last Admin: 02/03/19 11:19 Dose: Not Given Documented by: Loratadine (Claritin) 10 mg PO DAILY PRN PRN Reason: Allergy Symptoms Metoprolol Tartrate (Lopressor) 100 mg PO BID [facility] Stop: 08/04/19 09:01 Last Admin: 02/03/19 07:38 Dose: 100 mg Documented by: Naloxone HCl (Narcan) 0.4 mg IVP Q2MPRN PRN PRN Reason: SEE COMMENTS Stop: 08/04/19 00:32 Ondansetron HCl (Zofran) 4 mg IVP Q8H PRN PRN Reason: Nausea And Vomiting Stop: 08/04/19 00:32 Potassium Chloride (Potassium Chloride) 20 meq PO DAILY [facility] Stop: 08/04/19 09:01 Last Admin: 02/03/19 07:38 Dose: 20 meq Documented by: Tamsulosin HCl (Flomax) 0.4 mg PO DAILY [facility]; Protocol Stop: 08/04/19 09:01 Last Admin: 02/03/19 07:38 Dose: 0.4 mg Documented by: Warfarin Sodium (Coumadin Perpt) 1 each PO DAILY@1800 PRN PRN Reason: SEE COMMENTS Stop: 08/04/19 18:01 Warfarin Sodium (Coumadin) 5 mg PO ONCE ONE Stop: 02/03/19 18:01 - Imaging and Cardiology Chest Xray: report reviewed Echo: pending - EKG Interpretation EKG results cardiology: personally reviewed (ECG with a.fib, HR 94.), other (Telemetry reviewed with average HR previous 12 hours noted to be 83, a.fib. PVCs noted.) Consult Discharge Plan - Plan Referrals: NONE,PCP [Primary Care Provider] - <Adina Fraseray A - Last Filed: 02/04/19 09:10> Date of Encounter: 02/04/19 - Attending Attestation I have personally performed a face to face evaluation on this patient. I have reviewed and agree with the documented findings and care plan as documented by the TALEND DEVELOPER. History and Exam by me shows: Patient admitted with A. adriane with RVR in the setting of pneumonia. Currently rate controlled. Echo shows preserved EF. Agree with continuation of an ticoagulation with Coumadin. Thanks, Alan Fraser MD FAC Assessment and Plan Discussion w patient/family: The assessment and plan as outlined above was discussed with the patient and/or family members who expressed understanding and agreement. All questions were answered. Thank you for involving us in the care of your patient. Please call with any questions. History of Present Illness History of present illness: Mr. Acosta is a 88 year old male All Systems Review: The remainder of the systems were reviewed and are negative Physical Examination Vital Signs, Last 4 Hours Temp Pulse Resp BP Pulse Ox 02/04/19 07:04 98.2 F 81 19 139/77 93 Results 02/04/19 05:24 02/04/19 05:24 Lab Results 02/04/19 02/04/19 02/04/19 05:24 05:24 05:24 WBC 6.4 Hgb 9.1 L Hct 28.4 L Plt Count 143 INR 1.2 Sodium 141 Potassium 3.9 Chloride 109 H Carbon Dioxide 25 BUN 26 H Creatinine 1.30 Glucose 119 H Calcium 8.0 L Magnesium 2.3
[2019-02-03] MEDS ORDERED: *HR* Warfarin 5 MG TABLET PO ONE (18:00)
[2019-02-03] MEDS: Insulin DETEMIR 100 UNIT/ML X5UNITS SQ SCH (21:04)
[2019-02-04 05:46] LABS: Basophils % 0.5 %; Eosinophils # 0.1 K/mcL (0.0-0.6); Eosinophils % 1.7 %; Hematocrit 28.4 % (37.5-50.1); Hemoglobin 9.1 g/dL (12.9-16.9); Immature Granulocytes % 1.7 % (0-4); Lymphocytes # 1.5 K/mcL (0.6-4.6); Lymphocytes % 23.6 %; Mean Corpuscular Hemoglobin 35.1 pg (28.0-33.3); Mean Corpuscular Volume 109.7 fL (83.0-100.0); Mean Platelet Volume 11.5 fL (9.4-12.4); Monocytes # 1.1 K/mcL (0.0-1.3); Monocytes % 17.8 %; Neutrophils # 3.5 K/mcL (1.6-8.9); Nucleated Red Blood Cells 0.8 /100 WBC (0); Platelet Count 143 K/mcL (140-400); Red Blood Count 2.59 M/mcL (4.19-5.50); Red Cell Distribution Width 19.6 % (11.5-14.5); Segmented Neutrophils % 54.7 %; White Blood Count 6.4 K/mcL (4.3-11.1)
[2019-02-04 05:53] LABS: INR 1.2; Prothrombin Time 13.2 Seconds (9.4-12.1)
[2019-02-04 06:05] LABS: BUN/Creatinine Ratio 20 (6-26); Blood Urea Nitrogen 26 mg/dL (8-23); Carbon Dioxide 25 mEq/L (23-29); Chloride 109 mEq/L (98-107); Glucose 119 mg/dL (70-105); Magnesium 2.3 mg/dL (1.6-2.6); Osmolality,Calculated 298 (280-300); Phosphorous 2.8 mg/dL (2.7-4.5); Potassium 3.9 mEq/L (3.5-5.1); Sodium 141 mEq/L (136-145); eGFR For African Americans > 60 (> 60); eGFR For Non-African Americans 52 (> 60)
[2019-02-04] MEDS: Insulin LISPRO 300 UNITS/3 ML VIAL SQ SCH ×3 (08:01→16:02)
[2019-02-04] MEDS: Aspirin Enteric Coated 81 MG Tablet PO SCH (09:34)
[2019-02-04] MEDS: *HR* Glimepiride 2 MG TABLET PO SCH (09:34)
[2019-02-04] MEDS: Furosemide 40 MG TABLET PO SCH (09:34)
[2019-02-04] MEDS: Azithromycin 250 MG TABLET PO SCH (09:35)
[2019-02-04] MEDS: cefTRIAXone 1,000 MG in Water for inj. (sterile) 10 ML IVP SCH (09:36)
--- NOTE | 2019-02-04 09:52 | Discharge Summary ---
Orders not resulted at time of discharge: Pending orders 02/01/19 22:28 Culture,Blood [BC] Stat 02/02/19 00:39 Legionella Antigen [RM] Routine 02/02/19 00:51 S. Pneumoniae Antigen [RM] Stat 02/04/19 05:24 Basic Metabolic Panel AM 0400 C-Reactive Protein Routine Magnesium AM 0400 Phosphorous AM 0400 02/05/19 04:00 PT/INR [Prothrombin Time INR] [COAG] AM 0400 02/06/19 04:00 PT/INR [Prothrombin Time INR] [COAG] AM 0400 Date of Encounter: 02/04/19 Time of Encounter: 09:49 - Discharge Diagnosis (1) Acute kidney injury Priority: Secondary Status: Resolved (2) Atrial fibrillation Priority: Primary Status: Chronic Qualifiers: Atrial fibrillation type: chronic Qualified Code(s): I48.2 - Chronic atrial fibrillation (3) Diabetes mellitus Priority: Secondary Status: Chronic Qualifiers: Diabetes mellitus type: type 2 Diabetes mellitus long wall mining machine helper insulin use: without long wall mining machine helper use Diabetes mellitus complication status: without co mplication Qualified Code(s): E11.9 - Type 2 diabetes mellitus without complications (4) Anemia Priority: Secondary Status: Chronic Qualifiers: Anemia type: unspecified type Qualified Code(s): D64.9 - Anemia, unspecified (5) Pneumonia Priority: Primary Status: Acute Qualifiers: Pneumonia type: due to unspecified organism Laterality: bilateral Lung location: lower lobe of lung Qualified Code(s): J18.1 - Lobar pneumonia, unspecified organism (6) Sepsis Priority: Secondary Status: Resolved Qualifiers: Sepsis type: sepsis due to unspecified organism Qualified Code(s): A41.9 - Sepsis, unspecified organism (7) Cellulitis Priority: Secondary Status: Suspected Qualifiers: Site of cellulitis: extremity Site of cellulitis of extremity: lower extremity Laterality: left Qualified Code(s): L03.116 - Cellulitis of left lower limb Hospital course: Mr. Acosta is a 88 year old male past medical history of atrial fibrillation currently on Coumadin, diabetes, and high cholesterol presents to the ED for evaluation of shivering and vomiting. found to be febrile with a temperature of 100.8; blood pressure 143/78 and heart rate of 113. Patient had a leukocytosis of 18.0. His lactic acid was 3.0. chest x-ray was concerning for pneumonia. Patient admitted to the hospital due to sepsis, A.fib with rvr, and pneumonia. Patient was managed with IV antibiotics, and IV hydration. Patient acute symptoms have resolved, he is hemodynamically stable to be discharged to ECF/SNF on oral antibiotics. - Time Spent with Patient Total time spent providing and/or coordinating discharge services: Time spent: Greater than 30 minutes (35) - Discharge Medications Prescriptions: New Amoxicillin/Clavulanate [Augmentin] 875 mg PO BIDWM 7 Days #14 tablet Continued Metformin HCl [Glucophage Xr] 750 mg PO QPM MDD with meal. Furosemide [Lasix] 80 mg PO DAILY Potassium Chloride [Klor-Con] 20 meq PO DAILY Allopurinol [Zyloprim] 200 mg PO DAILY Glimepiride [Amaryl] 1 mg PO QAM MOM Conc [MILK OF MAGNESIA conc] 10 ml PO DAILY PRN #30 ud.liq PRN Reason: Constipation Warfarin [Coumadin] 5 mg PO 1800 #10 tablet Loratadine [Claritin] 10 mg PO DAILY PRN PRN Reason: Allergy Symptoms Aspirin Enteric Coated [Aspirin EC] 81 mg PO BID Metoprolol [Lopressor] 100 mg PO BID Sennosides/Docusate Sodium [Senna Plus] 2 each PO BID PRN PRN Reason: Constipation Home Medications: Allopurinol [Zyloprim] 200 mg PO DAILY 06/24/16 [History] Furosemide [Lasix] 80 mg PO DAILY 06/24/16 [History] Glimepiride [Amaryl] 1 mg PO QAM 06/24/16 [History] Metformin HCl [Glucophage Xr] 750 mg PO QPM MDD with meal. 06/24/16 [History] Potassium Chloride [Klor-Con] 20 meq PO DAILY 06/24/16 [History] MOM Conc [MILK OF MAGNESIA conc] 10 ml PO DAILY PRN #30 ud.liq 06/29/16 [Rx] Warfarin [Coumadin] 5 mg PO 1800 #10 tablet 06/29/16 [Rx] Aspirin Enteric Coated [Aspirin EC] 81 mg PO BID 02/01/19 [History] Loratadine [Claritin] 10 mg PO DAILY PRN 02/01/19 [History] Metoprolol [Lopressor] 100 mg PO BID 02/02/19 [History] Sennosides/Docusate Sodium [Senna Plus] 2 each PO BID PRN 02/02/19 [History] Amoxicillin/Clavulanate [Augmentin] 875 mg PO BIDWM 7 Days #14 tablet 02/04/19 [Rx] Allergies/Adverse Reactions: Allergy/AdvReac Type Severity Reaction Status Date / Time ciprofloxacin [From Cipro] Allergy Hives Verified 02/01/19 23:28 clindamycin Allergy Hives Verified 06/24/16 21:09 diphenhydramine Allergy Hives Verified 06/24/16 21:09 [From Benadryl] doxycycline AdvReac Nausea Verified 02/01/19 23:28 tamsulosin AdvReac Rash Verified 02/01/19 23:28 Date of admission: 02/02/19 00:20 Primary care physician: PCP NONE Consults: 02/02/19 00:39 Consult to Nurse Navigator [CONS] Routine Comment: 02/02/19 09:01 Consult to Occupational Therapy [CONS] Routine Comment: Evaluate, develop and implement POC Reason for Consult: discharge Does patient have active BEDREST order?: No Is patient medically & hemodynamically stable?: Yes Patient assessed for mobility or mobilized this visit?: Yes Consult to Physical Therapy [CONS] Routine Comment: Evaluate, develop and implement POC Reason for Consult: weakness Does patient have active BEDREST order?: No Is patient medically & hemodynamically stable?: Yes Patient assessed for mobility or mobilized this visit?: Yes 02/02/19 12:38 Consult to Cardiology [CONS] Routine Comment: Consulting Provider: Cardiology Brandy Reason for Consult: Anticoagulation for Afib. Pt refusing Coumadin, has not taken in a long time. Call Completed: Yes 02/03/19 07:46 Consult to Manager Mail [CONS] Routine Reason for SW Consult: needs swing bed - Constitutional Vitals: Temp Pulse Resp BP Pulse Ox 98.2 F 81 19 139/77 93 02/04/19 07:04 02/04/19 07:04 02/04/19 07:04 02/04/19 07:04 02/04/19 07:04 Exam: Vitals: Reviewed General: Alert and oriented x4. In no distress Cardiovascular: RRR, normal S1 & S2, no rubs, murmurs or gallops. Lungs: CTA b/l, no wheezes or crackles. Abdomen: Obese, soft, non-tender, no rigidity. Extremities: mild erythema on the left lower extr, no tenderness to touch. Neurological: No focal neurological abnormalities Rest of the physical exam is non contributory - Patient Status Disposition: Transfer SNF Condition: Good Functional capacity at discharge: independent ambulation Overall status at discharge: patient is progressing back to baseline - Discharge Instructions Follow Up With: NONE,PCP [Primary Care Provider] - Forms: ED Satisfaction Letter - Diet and Activity Activity: as per physical therapy Diet: diabetic diet
--- NOTE | 2019-02-04 09:56 | Physician Discharge Referral ---
ExtendedCare Referral Info Transfer To: snf - Diagnosis (1) Acute kidney injury Priority: Secondary Status: Resolved (2) Atrial fibrillation Priority: Primary Status: Chronic (3) Diabetes mellitus Priority: Secondary Status: Chronic (4) Anemia Priority: Secondary Status: Chronic (5) Pneumonia Priority: Secondary Status: Acute (6) Sepsis Priority: Secondary Status: Resolved (7) Cellulitis Priority: Secondary Status: Suspected Prognosis: Good Aware of Diagnosis: Patient Aware of Prognosis: Patient - Transfer Medications Prescriptions: Amoxicillin/Clavulanate [Augmentin] 875 mg PO BIDWM 7 Days #14 tablet Home Medications: Allopurinol [Zyloprim] 200 mg PO DAILY 06/24/16 [History] Furosemide [Lasix] 80 mg PO DAILY 06/24/16 [History] Glimepiride [Amaryl] 1 mg PO QAM 06/24/16 [History] Metformin HCl [Glucophage Xr] 750 mg PO QPM MDD with meal. 06/24/16 [History] Potassium Chloride [Klor-Con] 20 meq PO DAILY 06/24/16 [History] MOM Conc [MILK OF MAGNESIA conc] 10 ml PO DAILY PRN #30 ud.liq 06/29/16 [Rx] Warfarin [Coumadin] 5 mg PO 1800 #10 tablet 06/29/16 [Rx] Aspirin Enteric Coated [Aspirin EC] 81 mg PO BID 02/01/19 [History] Loratadine [Claritin] 10 mg PO DAILY PRN 02/01/19 [History] Metoprolol [Lopressor] 100 mg PO BID 02/02/19 [History] Sennosides/Docusate Sodium [Senna Plus] 2 each PO BID PRN 02/02/19 [History] Amoxicillin/Clavulanate [Augmentin] 875 mg PO BIDWM 7 Days #14 tablet 02/04/19 [Rx] Allergies/Adverse Reactions: Allergy/AdvReac Type Severity Reaction Status Date / Time ciprofloxacin [From Cipro] Allergy Hives Verified 02/01/19 23:28 clindamycin Allergy Hives Verified 06/24/16 21:09 diphenhydramine Allergy Hives Verified 06/24/16 21:09 [From Benadryl] doxycycline AdvReac Nausea Verified 02/01/19 23:28 tamsulosin AdvReac Rash Verified 02/01/19 23:28 - Respiratory Orders None Smoking Cessation: Smoking cessation has been advised. For more information, call the [place] Tobacco Quit Line at 5-315-WTHU-NOW. - Advance Directives Code Status: Full Code - Mobility Orders Ambulate - Rehabiliation Orders Rehab Potential: Good Rehab Orders: Evaluation for Physical Therapy, Evaluation for Occupational Therapy - Diet Orders Regular CERTIFICATION: I certify that the transfer of the above named patient to an Extended Care Facility is necessary for the continuing treatment of the diagnosis listed. The above information is true and accurate reflection of patient's current condition . Confidential - Redisclosure prohibited without a patient's written consent.
[2019-02-04] MEDS ORDERED: *HR* Warfarin 4 MG TABLET PO ONE (18:00)
[2019-02-04] MEDS: Insulin DETEMIR 100 UNIT/ML X5UNITS SQ SCH (20:41)
[2019-02-05 06:58] LABS: INR 1.2; Prothrombin Time 13.8 Seconds (9.4-12.1)
[2019-02-05 07:12] VITALS: BP 158/78
[2019-02-05] MEDS: Insulin LISPRO 300 UNITS/3 ML VIAL SQ SCH (07:18)
[2019-02-05] MEDS: Aspirin Enteric Coated 81 MG Tablet PO SCH (07:47)
[2019-02-05] MEDS: Furosemide 40 MG TABLET PO SCH (07:47)
[2019-02-05] MEDS: Azithromycin 250 MG TABLET PO SCH (07:47)
[2019-02-05] MEDS: *HR* Glimepiride 2 MG TABLET PO SCH (07:48)
[2019-02-05] MEDS: cefTRIAXone 1,000 MG in Water for inj. (sterile) 10 ML IVP SCH (07:48)
--- NOTE | 2019-02-05 09:53 | Event Note ---
Date of Encounter: 02/05/19 Time of Encounter: 09:48 I have seen and evaluated the patient at bedside. patient reports feeling well, denies shortness of breath, chest pain, dizziness, lightheadedness. Denies abdominal pain. Physical exam Vitals: Reviewed. General: Alert and oriented x4. In no distress Cardiovascular: RRR, normal S1 & S2, no rubs, murmurs or gallops. Lungs: CTA b/l, no wheezes or crackles. Abdomen: Obese, soft, non-tender, no rigidity. NABS in all 4 quadrants. Extremities: Clearing erythema on the left lower extr, no tenderness to touch. Neurological: No focal neurological abnormalities Rest of the physical exam is non contributory Assessment 1. Pneumonia 2. Diabetes 3. Anemia 4. Acute Kidney Injury 5. VTE prophylaxis 6. Atrial Fibrillation Plan Patient is clinically stable to be discharged to SNF. DC summary dictated yesterday.
== END 2019-02-05 11:23 | DRG 871 ==
LOC: EMEROOARM 21:24 → 2ANU 21:24 → SUATTDRO 02-02 00:20 → OBSVTOIN 02-02 00:20 → 2ANU 02-02 00:49
PROVIDERS: ADMIT Internal Medicine; ATTEND Internal Medicine

== ENCOUNTER 2020-03-07 17:53 | Inpatient (IN) ==
[2020-03-07] MEDS ORDERED: 0.9 % Sodium Chloride 1,000 ML IVC ONE (18:09)
[2020-03-07] MEDS ORDERED: Ondansetron 4 MG/2 ML VIAL IVP ONE (18:09)
[2020-03-07] MEDS ORDERED: 0.9 % Sodium Chloride 1,000 ML ONE (18:11)
[2020-03-07 18:23] LABS: Basophils # 0.1 K/mcL (0.0-0.2); Basophils % 0.8 %; Hematocrit 32.3 % (37.5-50.1); Hemoglobin 10.3 g/dL (12.9-16.9); Immature Granulocytes % 1.4 % (0-4); Lymphocytes # 1.1 K/mcL (0.6-4.6); Lymphocytes % 9.9 %; Mean Corpuscular HGB Conc 31.9 g/dL (31.6-35.5); Mean Corpuscular Hemoglobin 34.6 pg (28.0-33.3); Mean Corpuscular Volume 108.4 fL (83.0-100.0); Mean Platelet Volume 11.2 fL (9.4-12.4); Monocytes % 17.6 %; Neutrophils # 7.8 K/mcL (1.6-8.9); Nucleated Red Blood Cells 0.9 /100 WBC (0); Platelet Count 195 K/mcL (140-400); Red Blood Count 2.98 M/mcL (4.19-5.50); Red Cell Distribution Width 21.4 % (11.5-14.5); Segmented Neutrophils % 70.3 %; White Blood Count 11.1 K/mcL (4.3-11.1)
[2020-03-07 18:29] LABS: INR 2.2; Prothrombin Time 24.5 Seconds (9.4-12.1)
[2020-03-07 18:32] LABS: Activated Partial Thrombo Time 33.7 Seconds (26.0-36.0)
[2020-03-07 18:49] LABS: Alanine Aminotransferase 15 Units/L (7-52); Albumin 4.4 g/dL (3.5-5.7); Albumin/Globulin Ratio 1.6 (1.1-2.2); Alkaline Phosphatase 56 Units/L (34-104); Aspartate Amino Transferase 17 Units/L (13-39); BUN/Creatinine Ratio 17 (6-26); Bilirubin,Direct 0.2 mg/dL (0.0-0.2); Bilirubin,Indirect 1.1 mg/dL (0.0-1.0); Bilirubin,Total 1.3 mg/dL (0.3-1.0); Blood Urea Nitrogen 23 mg/dL (8-23); Calcium 9.3 mg/dL (8.6-10.3); Carbon Dioxide 23 mEq/L (23-29); Chloride 103 mEq/L (98-107); Creatine Kinase 107 Units/L (30-223); Ethanol < 10 mg/dL (Less than 10); Globulin 2.8 g/dL (2.4-3.5); Glucose 167 mg/dL (70-105); Osmolality,Calculated 295 (280-300); Potassium 3.4 mEq/L (3.5-5.1); Sodium 139 mEq/L (136-145); Total Protein 7.2 g/dL (6.4-8.9); eGFR For African Americans > 60 (> 60); eGFR For Non-African Americans 50 (> 60)
[2020-03-07 18:54] LABS: Troponin I 0.06 ng/mL (< 0.04)
[2020-03-07 19:41] LABS: Bacteria,Urine Few per hpf (None-Few); Bilirubin,Urine Negative (Negative); Blood,Urine Small (Negative); Clarity,Urine Clear (Clear); Color,Urine Light-Yellow (Yellow); Glucose,Urine (UA) Normal (Normal); Ketones,Urine Negative (Negative); Leukocyte Esterase,Urine Negative (Negative); Nitrite,Urine Negative (Negative); PH,Urine 5.5 pH Units (5.0-8.0); Protein,Urine Trace mg/dL (Neg-Trace); Specific Gravity,Urine 1.016 (1.010-1.025); Urobilinogen,Urine Normal (Normal); WBC,Urine 0-3 per hpf (0-3)
[2020-03-07 19:59] LABS: Adenovirus Not Detected (Not Detect); Bordetella Pertussis Not Detected (Not Detect); Chlamydophila pneumoniae Not Detected (Not Detect); Coronavirus 229E Not Detected (Not Detect); Coronavirus HKU1 Not Detected (Not Detect); Coronavirus NL63 Not Detected (Not Detect); Coronavirus OC43 Not Detected (Not Detect); Human Metapneumovirus Not Detected (Not Detect); Human Rhinovirus/Enterovirus Not Detected (Not Detect); Influenza A Subtype 2009 H1 Not Detected (Not Detect); Influenza B Not Detected (Not Detect); Mycoplasma pneumoniae Not Detected (Not Detect); Parainfluenza Virus 1 Not Detected (Not Detect); Parainfluenza Virus 2 Not Detected (Not Detect); Parainfluenza Virus 3 Not Detected (Not Detect); Parainfluenza Virus 4 Not Detected (Not Detect); Respiratory Syncytial Virus Not Detected (Not Detect)
[2020-03-07] MEDS ORDERED: cefTRIAXone 1,000 MG in 0.9 % Sodium Chloride Mini Bag 100 ML IVPB ONE (20:31)
[2020-03-07] MEDS ORDERED: Naloxone 0.4 MG/ML INJ IVP PRN (22:58)
[2020-03-07] MEDS ORDERED: Ondansetron 4 MG/2 ML VIAL IVP PRN (22:58)
[2020-03-07] MEDS ORDERED: 0.9 % Sodium Chloride 1,000 ML IVC SCH (23:00)
[2020-03-08 00:31] LABS: Basophils % 0.5 %; Hematocrit 28.2 % (37.5-50.1); Hemoglobin 8.9 g/dL (12.9-16.9); Lymphocytes # 1.2 K/mcL (0.6-4.6); Lymphocytes % 15.6 %; Mean Corpuscular HGB Conc 31.6 g/dL (31.6-35.5); Mean Corpuscular Hemoglobin 34.2 pg (28.0-33.3); Mean Corpuscular Volume 108.5 fL (83.0-100.0); Mean Platelet Volume 11.9 fL (9.4-12.4); Monocytes % 20.8 %; Neutrophils # 4.9 K/mcL (1.6-8.9); Nucleated Red Blood Cells 0.8 /100 WBC (0); Platelet Count 160 K/mcL (140-400); Red Cell Distribution Width 21.4 % (11.5-14.5); Segmented Neutrophils % 62.1 %; White Blood Count 7.9 K/mcL (4.3-11.1)
[2020-03-08] MEDS: Azithromycin 500 MG in 0.9 % Sodium Chloride 250 ML IVPB SCH (00:33)
[2020-03-08 00:37] LABS: Albumin 3.8 g/dL (3.5-5.7); Albumin/Globulin Ratio 1.5 (1.1-2.2); Bilirubin,Total 0.9 mg/dL (0.3-1.0); Calcium 8.6 mg/dL (8.6-10.3); Globulin 2.5 g/dL (2.4-3.5); Potassium 3.2 mEq/L (3.5-5.1); Total Protein 6.3 g/dL (6.4-8.9)
[2020-03-08] MEDS ORDERED: Isovue-370 500 ML BOTTLE IVP ONE (00:45)
[2020-03-08 00:52] LABS: Monocytes # 1.6 K/mcL (0.0-1.3)
[2020-03-08] MEDS ORDERED: Sennosides/Docusate Sodium TABLET PO PRN (00:52)
[2020-03-08 01:37] LABS: Platelet Estimate Normal (Normal)
[2020-03-08] MEDS ORDERED: Aspirin 325 MG TABLET PO ONE (03:00)
[2020-03-08] MEDS: MetroNIDAZOLE 500 MG/100 ML 500 MG/100 ML BAG IVPB SCH ×3 (05:09→20:20)
[2020-03-08] MEDS ORDERED: Perflutren Lipid Microsphere 1.3 ML in 0.9 % Sodium Chloride 8.7 ML IVP PRN (07:48)
[2020-03-08] MEDS: Metoprolol 100 MG TABLET PO SCH ×2 (09:44→20:20)
[2020-03-08] MEDS: Furosemide 40 MG TABLET PO SCH (09:44)
[2020-03-08] MEDS: allopurinoL 100 MG TABLET PO SCH (09:45)
[2020-03-08] MEDS ORDERED: cefTRIAXone 1,000 MG in 0.9 % Sodium Chloride Mini Bag 100 ML IVPB SCH (10:00)
[2020-03-08] MEDS ORDERED: *HR* Warfarin 2.5 MG TABLET PO ONE (18:00)
[2020-03-08] MEDS ORDERED: Warfarin perPT PO PRN (18:00)
[2020-03-09] MEDS: cefTRIAXone 1,000 MG in Water for inj. (sterile) 10 ML IVP SCH ×2 (00:11→23:37)
[2020-03-09] MEDS: Azithromycin 500 MG in 0.9 % Sodium Chloride 250 ML IVPB SCH ×2 (00:11→23:39)
[2020-03-09 01:30] LABS: Eosinophils # 0.1 K/mcL (0.0-0.6); Hematocrit 26.9 % (37.5-50.1); Hemoglobin 8.5 g/dL (12.9-16.9); Mean Corpuscular HGB Conc 31.6 g/dL (31.6-35.5); Mean Corpuscular Hemoglobin 35.1 pg (28.0-33.3); Mean Corpuscular Volume 111.2 fL (83.0-100.0); Mean Platelet Volume 11.1 fL (9.4-12.4); Nucleated Red Blood Cells 1.1 /100 WBC (0); Platelet Count 139 K/mcL (140-400); Red Blood Count 2.42 M/mcL (4.19-5.50); Red Cell Distribution Width 21.6 % (11.5-14.5); White Blood Count 5.7 K/mcL (4.3-11.1)
[2020-03-09 01:46] LABS: INR 1.9; Prothrombin Time 21.3 Seconds (9.4-12.1)
[2020-03-09 01:54] LABS: BUN/Creatinine Ratio 17 (6-26); Blood Urea Nitrogen 21 mg/dL (8-23); Calcium 8.1 mg/dL (8.6-10.3); Carbon Dioxide 22 mEq/L (23-29); Chloride 111 mEq/L (98-107); Glucose 127 mg/dL (70-105); Osmolality,Calculated 299 (280-300); Potassium 3.7 mEq/L (3.5-5.1); Sodium 142 mEq/L (136-145); eGFR For African Americans > 60 (> 60); eGFR For Non-African Americans 56 (> 60)
[2020-03-09 02:03] LABS: Anisocytosis 2+ (Not Present); Basophilic Stippling 1+ (Not Present); Lymphocytes # 2.6 K/mcL (0.6-4.6); Macrocytosis Present (Not Present); Microcytosis Present (Not Present); Monocytes # 0.6 K/mcL (0.0-1.3); Neutrophils # 2.4 K/mcL (1.6-8.9)
[2020-03-09 02:04] LABS: Poikilocytosis 1+ (Not Present)
[2020-03-09 02:05] LABS: Platelet Estimate Normal (Normal)
[2020-03-09] MEDS: MetroNIDAZOLE 500 MG/100 ML 500 MG/100 ML BAG IVPB SCH ×2 (03:44→11:56)
[2020-03-09] MEDS: Metoprolol 100 MG TABLET PO SCH ×2 (07:00→23:37)
[2020-03-09] MEDS: allopurinoL 100 MG TABLET PO SCH (07:00)
[2020-03-09] MEDS: Furosemide 40 MG TABLET PO SCH (07:00)
[2020-03-09] MEDS ORDERED: *HR* Warfarin 2.5 MG TABLET PO ONE (18:00)
[2020-03-10 06:04] LABS: Basophils % 0.7 %; Eosinophils # 0.2 K/mcL (0.0-0.6); Eosinophils % 2.6 %; Hematocrit 26.9 % (37.5-50.1); Hemoglobin 8.5 g/dL (12.9-16.9); Immature Granulocytes % 1.2 % (0-4); Lymphocytes # 1.3 K/mcL (0.6-4.6); Lymphocytes % 23.2 %; Mean Corpuscular HGB Conc 31.6 g/dL (31.6-35.5); Mean Corpuscular Hemoglobin 34.7 pg (28.0-33.3); Mean Corpuscular Volume 109.8 fL (83.0-100.0); Mean Platelet Volume 11.5 fL (9.4-12.4); Monocytes # 0.9 K/mcL (0.0-1.3); Monocytes % 15.8 %; Neutrophils # 3.3 K/mcL (1.6-8.9); Nucleated Red Blood Cells 0.5 /100 WBC (0); Platelet Count 135 K/mcL (140-400); Red Blood Count 2.45 M/mcL (4.19-5.50); Red Cell Distribution Width 21.3 % (11.5-14.5); Segmented Neutrophils % 56.5 %; White Blood Count 5.8 K/mcL (4.3-11.1)
[2020-03-10 06:06] LABS: Prothrombin Time 23.1 Seconds (9.4-12.1)
[2020-03-10 06:17] LABS: BUN/Creatinine Ratio 14 (6-26); Blood Urea Nitrogen 17 mg/dL (8-23); Calcium 7.9 mg/dL (8.6-10.3); Carbon Dioxide 24 mEq/L (23-29); Chloride 110 mEq/L (98-107); Glucose 130 mg/dL (70-105); Osmolality,Calculated 295 (280-300); Potassium 3.5 mEq/L (3.5-5.1); Sodium 141 mEq/L (136-145); eGFR For African Americans > 60 (> 60); eGFR For Non-African Americans 56 (> 60)
[2020-03-10 07:09] VITALS: BP 132/76
[2020-03-10] MEDS: Furosemide 40 MG TABLET PO SCH (07:17)
[2020-03-10] MEDS: Metoprolol 100 MG TABLET PO SCH (07:17)
[2020-03-10] MEDS: allopurinoL 100 MG TABLET PO SCH (07:17)
== END 2020-03-10 10:37 | disposition home or self-care (01) | DRG 871 ==
LOC: 2ANU 17:53 → EMEROOARM 17:53 → SUATTDRO 20:53 → 2ANU 21:34
PROVIDERS: ADMIT Student in an Organized Health Care Education/Training Program; ATTEND Family Medicine

== ENCOUNTER 2021-03-15 11:12 | Inpatient (IN) ==
[2021-03-15 13:05] LABS: Basophils % 0.5 %; Eosinophils # 0.2 K/mcL (0.0-0.6); Eosinophils % 2.3 %; Hematocrit 22.8 % (37.5-50.1); Hemoglobin 6.9 g/dL (12.9-16.9); Immature Granulocytes % 3.2 % (0-4); Lymphocytes % 15.3 %; Mean Corpuscular HGB Conc 30.3 g/dL (31.6-35.5); Mean Corpuscular Hemoglobin 31.5 pg (28.0-33.3); Mean Corpuscular Volume 104.1 fL (83.0-100.0); Mean Platelet Volume 10.7 fL (9.4-12.4); Monocytes # 0.9 K/mcL (0.0-1.3); Monocytes % 14.2 %; Neutrophils # 4.2 K/mcL (1.6-8.9); Nucleated Red Blood Cells 0.8 /100 WBC (0); Platelet Count 246 K/mcL (140-400); Red Blood Count 2.19 M/mcL (4.19-5.50); Red Cell Distribution Width 23.5 % (11.5-14.5); Segmented Neutrophils % 64.5 %; White Blood Count 6.5 K/mcL (4.3-11.1)
[2021-03-15 13:28] LABS: Anisocytosis 2+ (Not Present); Hypochromasia Present (Not Present); Macrocytosis Present (Not Present); Poikilocytosis 1+ (Not Present); Stomatocytes 1+ (Not Present)
[2021-03-15 13:29] LABS: Platelet Estimate Normal (Normal)
[2021-03-15 13:33] LABS: Alanine Aminotransferase 12 Units/L (7-52); Albumin 3.6 g/dL (3.5-5.7); Alkaline Phosphatase 57 Units/L (34-104); Aspartate Amino Transferase 13 Units/L (13-39); BUN/Creatinine Ratio 22 (6-26); Bilirubin,Direct 0.1 mg/dL (0.0-0.2); Bilirubin,Indirect 0.3 mg/dL (0.0-1.0); Bilirubin,Total 0.4 mg/dL (0.3-1.0); Blood Urea Nitrogen 27 mg/dL (8-23); Calcium 8.8 mg/dL (8.6-10.3); Carbon Dioxide 25 mEq/L (23-29); Chloride 108 mEq/L (98-107); Globulin 3.5 g/dL (2.4-3.5); Glucose 162 mg/dL (70-105); Osmolality,Calculated 301 (280-300); Potassium 3.5 mEq/L (3.5-5.1); Prothrombin Time 51.9 Seconds (9.4-12.1); Sodium 141 mEq/L (136-145); Total Protein 7.1 g/dL (6.4-8.9); Troponin I 0.03 ng/mL (< 0.04); eGFR For African Americans > 60 (> 60); eGFR For Non-African Americans 54 (> 60)
[2021-03-15 13:34] LABS: INR 4.7
[2021-03-15] MEDS ORDERED: Pantoprazole 40 MG VIAL IVP ONE (13:44)
[2021-03-15] MEDS ORDERED: 0.9 % Sodium Chloride 250 ML ONE (13:54)
[2021-03-15 14:05] LABS: Bilirubin,Urine Negative (Negative); Blood,Urine Negative (Negative); Clarity,Urine Clear (Clear); Color,Urine Light-Yellow (Yellow); Glucose,Urine (UA) Normal (Normal); Ketones,Urine Negative (Negative); Leukocyte Esterase,Urine Negative (Negative); Nitrite,Urine Negative (Negative); PH,Urine 5.5 pH Units (5.0-8.0); Protein,Urine Negative (Neg-Trace); Specific Gravity,Urine 1.014 (1.010-1.025); Urobilinogen,Urine Normal (Normal)
[2021-03-15] MEDS ORDERED: Dextrose Gel 15 GM/37.5 ML TUBE PO PRN ×2 (15:08)
[2021-03-15] MEDS ORDERED: Ondansetron 4 MG/2 ML VIAL IVP PRN (15:08)
[2021-03-15] MEDS ORDERED: *HR* Dextrose 50 % in Water (Vial) 50 ML VIAL IVP PRN (15:08)
[2021-03-15] MEDS ORDERED: D5% in Water 1,000 ML IVC PRN (15:08)
[2021-03-15] MEDS ORDERED: Naloxone 0.4 MG/ML INJ IVP PRN (15:08)
[2021-03-15] MEDS ORDERED: Acetaminophen 325 MG TABLET PO PRN (15:08)
[2021-03-15] MEDS ORDERED: Perflutren Lipid Microsphere 1.3 ML in 0.9 % Sodium Chloride 8.7 ML IVP PRN (15:14)
[2021-03-15] MEDS: Insulin LISPRO 300 UNITS/3 ML VIAL SUBQ SCH (15:59)
[2021-03-15] MEDS: Pantoprazole 40 MG VIAL IVP SCH (16:16)
[2021-03-16 00:07] LABS: Hematocrit 24.8 % (37.5-50.1); Hemoglobin 7.6 g/dL (12.9-16.9)
[2021-03-16 02:45] LABS: Basophils % 0.4 %; Eosinophils # 0.1 K/mcL (0.0-0.6); Eosinophils % 1.7 %; Hematocrit 23.3 % (37.5-50.1); Hemoglobin 7.3 g/dL (12.9-16.9); Immature Granulocytes % 1.9 % (0-4); Lymphocytes # 1.9 K/mcL (0.6-4.6); Lymphocytes % 25.3 %; Mean Corpuscular HGB Conc 31.3 g/dL (31.6-35.5); Mean Corpuscular Hemoglobin 31.3 pg (28.0-33.3); Mean Platelet Volume 11.4 fL (9.4-12.4); Monocytes # 1.2 K/mcL (0.0-1.3); Nucleated Red Blood Cells 0.8 /100 WBC (0); Platelet Count 239 K/mcL (140-400); Red Blood Count 2.33 M/mcL (4.19-5.50); Red Cell Distribution Width 23.6 % (11.5-14.5); Segmented Neutrophils % 54.7 %; White Blood Count 7.6 K/mcL (4.3-11.1)
[2021-03-16 03:06] LABS: BUN/Creatinine Ratio 18 (6-26); Blood Urea Nitrogen 23 mg/dL (8-23); Calcium 8.3 mg/dL (8.6-10.3); Carbon Dioxide 25 mEq/L (23-29); Chloride 108 mEq/L (98-107); Glucose 90 mg/dL (70-105); Iron 42 mcg/dL (65-175); Magnesium 1.6 mg/dL (1.6-2.6); Osmolality,Calculated 297 (280-300); Phosphorous 2.6 mg/dL (2.7-4.5); Potassium 3.2 mEq/L (3.5-5.1); Sodium 142 mEq/L (136-145); eGFR For African Americans > 60 (> 60); eGFR For Non-African Americans 53 (> 60)
[2021-03-16 03:09] LABS: Neutrophils # 4.2 K/mcL (1.6-8.9)
[2021-03-16 03:10] LABS: Prothrombin Time 22.2 Seconds (9.4-12.1)
[2021-03-16 03:24] LABS: Ferritin 644 ng/mL (20-250)
[2021-03-16 03:36] LABS: Anisocytosis 3+ (Not Present); Platelet Estimate Normal (Normal); Polychromasia 1+ (Not Present)
[2021-03-16 03:58] LABS: % Iron Saturation 20 % (20-55); Transferrin 147 mg/dL (203-362)
[2021-03-16] MEDS: Pantoprazole 40 MG VIAL IVP SCH (05:00)
[2021-03-16] MEDS: Insulin LISPRO 300 UNITS/3 ML VIAL SUBQ SCH ×3 (09:34→17:28)
[2021-03-16 11:05] LABS: Hematocrit 24.5 % (37.5-50.1); Hemoglobin 7.6 g/dL (12.9-16.9)
[2021-03-16] MEDS ORDERED: Finasteride 5 MG TABLET PO PRN (14:40)
[2021-03-16] MEDS ORDERED: Sennosides/Docusate Sodium TABLET PO PRN (14:40)
[2021-03-16] MEDS: 0.9 % Sodium Chloride 250 ML IV SCH (17:28)
[2021-03-16 17:50] LABS: Hematocrit 25.3 % (37.5-50.1)
[2021-03-16] MEDS: Metoprolol 100 MG TABLET PO SCH (20:16)
[2021-03-17 01:21] LABS: Basophils % 0.5 %; Eosinophils # 0.1 K/mcL (0.0-0.6); Eosinophils % 1.6 %; Hematocrit 25.3 % (37.5-50.1); Hemoglobin 7.8 g/dL (12.9-16.9); Immature Granulocytes % 2.3 % (0-4); Lymphocytes # 1.5 K/mcL (0.6-4.6); Lymphocytes % 19.9 %; Mean Corpuscular HGB Conc 30.8 g/dL (31.6-35.5); Mean Corpuscular Hemoglobin 30.4 pg (28.0-33.3); Mean Corpuscular Volume 98.4 fL (83.0-100.0); Mean Platelet Volume 11.5 fL (9.4-12.4); Monocytes # 1.3 K/mcL (0.0-1.3); Monocytes % 17.6 %; Neutrophils # 4.3 K/mcL (1.6-8.9); Nucleated Red Blood Cells 0.8 /100 WBC (0); Platelet Count 245 K/mcL (140-400); Red Blood Count 2.57 M/mcL (4.19-5.50); Segmented Neutrophils % 58.1 %; White Blood Count 7.3 K/mcL (4.3-11.1)
[2021-03-17 01:26] LABS: INR 1.4; Prothrombin Time 16.5 Seconds (9.4-12.1)
[2021-03-17 01:40] LABS: BUN/Creatinine Ratio 20 (6-26); Blood Urea Nitrogen 24 mg/dL (8-23); Calcium 8.3 mg/dL (8.6-10.3); Carbon Dioxide 24 mEq/L (23-29); Chloride 110 mEq/L (98-107); Glucose 148 mg/dL (70-105); Osmolality,Calculated 297 (280-300); Potassium 3.5 mEq/L (3.5-5.1); Sodium 140 mEq/L (136-145); eGFR For African Americans > 60 (> 60); eGFR For Non-African Americans 58 (> 60)
[2021-03-17] MEDS: Insulin LISPRO 300 UNITS/3 ML VIAL SUBQ SCH ×3 (08:36→16:30)
[2021-03-17] MEDS: Furosemide 40 MG TABLET PO SCH (08:45)
[2021-03-17] MEDS: Metoprolol 100 MG TABLET PO SCH ×2 (08:45→21:33)
[2021-03-17] MEDS: 0.9 % Sodium Chloride 250 ML IV SCH (08:47)
[2021-03-17] MEDS ORDERED: NON-FORMULARY MEDICATION 1 EACH EACH (Fish Oil/Dha/Epa [Fish Oil 1,200 Mg Fish Oil] 1 EACH PO SCH (09:00)
[2021-03-18 08:38] LABS: Basophils % 0.5 %; Eosinophils # 0.2 K/mcL (0.0-0.6); Eosinophils % 2.9 %; Hematocrit 24.4 % (37.5-50.1); Hemoglobin 7.6 g/dL (12.9-16.9); Immature Granulocytes % 2.7 % (0-4); Lymphocytes # 1.3 K/mcL (0.6-4.6); Lymphocytes % 21.5 %; Mean Corpuscular HGB Conc 31.1 g/dL (31.6-35.5); Mean Corpuscular Volume 99.6 fL (83.0-100.0); Mean Platelet Volume 11.4 fL (9.4-12.4); Monocytes # 1.1 K/mcL (0.0-1.3); Monocytes % 17.8 %; Neutrophils # 3.2 K/mcL (1.6-8.9); Nucleated Red Blood Cells 0.7 /100 WBC (0); Platelet Count 214 K/mcL (140-400); Red Blood Count 2.45 M/mcL (4.19-5.50); Red Cell Distribution Width 22.3 % (11.5-14.5); Segmented Neutrophils % 54.6 %; White Blood Count 5.9 K/mcL (4.3-11.1)
[2021-03-18] MEDS: Furosemide 40 MG TABLET PO SCH (08:44)
[2021-03-18] MEDS: Insulin LISPRO 300 UNITS/3 ML VIAL SUBQ SCH ×3 (08:44→16:05)
[2021-03-18] MEDS: Metoprolol 100 MG TABLET PO SCH ×2 (08:44→19:59)
[2021-03-18 08:54] LABS: BUN/Creatinine Ratio 19 (6-26); Blood Urea Nitrogen 22 mg/dL (8-23); Calcium 8.3 mg/dL (8.6-10.3); Carbon Dioxide 26 mEq/L (23-29); Chloride 108 mEq/L (98-107); Glucose 126 mg/dL (70-105); Magnesium 1.9 mg/dL (1.6-2.6); Osmolality,Calculated 299 (280-300); Potassium 3.4 mEq/L (3.5-5.1); Sodium 142 mEq/L (136-145); eGFR For African Americans > 60 (> 60); eGFR For Non-African Americans 59 (> 60)
[2021-03-18] MEDS ORDERED: *HR* LORazepam 0.5 MG TABLET PO ONE (21:18)
[2021-03-19] MEDS: Insulin LISPRO 300 UNITS/3 ML VIAL SUBQ SCH ×3 (07:36→16:12)
[2021-03-19 07:46] LABS: Basophils % 0.3 %; Eosinophils # 0.2 K/mcL (0.0-0.6); Eosinophils % 3.6 %; Hematocrit 23.9 % (37.5-50.1); Hemoglobin 7.6 g/dL (12.9-16.9); Immature Granulocytes % 2.1 % (0-4); Lymphocytes # 1.6 K/mcL (0.6-4.6); Lymphocytes % 28.1 %; Mean Corpuscular HGB Conc 31.8 g/dL (31.6-35.5); Mean Corpuscular Hemoglobin 31.5 pg (28.0-33.3); Mean Corpuscular Volume 99.2 fL (83.0-100.0); Mean Platelet Volume 11.2 fL (9.4-12.4); Monocytes # 0.9 K/mcL (0.0-1.3); Monocytes % 15.6 %; Neutrophils # 2.9 K/mcL (1.6-8.9); Nucleated Red Blood Cells 0.9 /100 WBC (0); Platelet Count 203 K/mcL (140-400); Red Blood Count 2.41 M/mcL (4.19-5.50); Red Cell Distribution Width 21.9 % (11.5-14.5); Segmented Neutrophils % 50.3 %; White Blood Count 5.8 K/mcL (4.3-11.1)
[2021-03-19] MEDS: Metoprolol 100 MG TABLET PO SCH ×2 (07:46→20:19)
[2021-03-19] MEDS: Furosemide 40 MG TABLET PO SCH (07:46)
[2021-03-19 08:04] LABS: BUN/Creatinine Ratio 22 (6-26); Blood Urea Nitrogen 27 mg/dL (8-23); Calcium 8.5 mg/dL (8.6-10.3); Carbon Dioxide 26 mEq/L (23-29); Chloride 109 mEq/L (98-107); Glucose 124 mg/dL (70-105); Osmolality,Calculated 299 (280-300); Potassium 3.6 mEq/L (3.5-5.1); Sodium 141 mEq/L (136-145); eGFR For African Americans > 60 (> 60); eGFR For Non-African Americans 55 (> 60)
[2021-03-19 08:38] LABS: INR 1.4; Prothrombin Time 15.8 Seconds (9.4-12.1)
[2021-03-20 06:27] LABS: Hematocrit 24.7 % (37.5-50.1); Hemoglobin 7.7 g/dL (12.9-16.9); Mean Corpuscular HGB Conc 31.2 g/dL (31.6-35.5); Mean Corpuscular Hemoglobin 30.4 pg (28.0-33.3); Mean Corpuscular Volume 97.6 fL (83.0-100.0); Mean Platelet Volume 10.8 fL (9.4-12.4); Platelet Count 221 K/mcL (140-400); Red Blood Count 2.53 M/mcL (4.19-5.50); Red Cell Distribution Width 21.8 % (11.5-14.5); White Blood Count 8.3 K/mcL (4.3-11.1)
[2021-03-20 06:52] LABS: BUN/Creatinine Ratio 20 (6-26); Blood Urea Nitrogen 23 mg/dL (8-23); Calcium 8.5 mg/dL (8.6-10.3); Carbon Dioxide 23 mEq/L (23-29); Chloride 104 mEq/L (98-107); Glucose 119 mg/dL (70-105); Osmolality,Calculated 291 (280-300); Potassium 3.4 mEq/L (3.5-5.1); Sodium 138 mEq/L (136-145); eGFR For African Americans > 60 (> 60); eGFR For Non-African Americans > 60 (> 60)
[2021-03-20] MEDS: Insulin LISPRO 300 UNITS/3 ML VIAL SUBQ SCH ×3 (07:31→16:13)
[2021-03-20] MEDS ORDERED: Potassium Chloride 20 MEQ, Lidocaine 1% 2 ML in 0.9 % Sodium Chloride 250 ML IVPB ONE (07:58)
[2021-03-20] MEDS: Metoprolol 100 MG TABLET PO SCH ×2 (08:40→20:36)
[2021-03-20] MEDS: Furosemide 40 MG TABLET PO SCH (08:40)
[2021-03-20] MEDS ORDERED: Lidocaine -MPF 2% 5 ML VIAL ONE (12:43)
[2021-03-21 05:39] LABS: Hematocrit 23.8 % (37.5-50.1); Hemoglobin 7.6 g/dL (12.9-16.9); Mean Corpuscular HGB Conc 31.9 g/dL (31.6-35.5); Mean Corpuscular Hemoglobin 31.4 pg (28.0-33.3); Mean Corpuscular Volume 98.3 fL (83.0-100.0); Mean Platelet Volume 10.5 fL (9.4-12.4); Platelet Count 205 K/mcL (140-400); Red Blood Count 2.42 M/mcL (4.19-5.50); Red Cell Distribution Width 21.8 % (11.5-14.5); White Blood Count 6.8 K/mcL (4.3-11.1)
[2021-03-21 06:02] LABS: BUN/Creatinine Ratio 16 (6-26); Blood Urea Nitrogen 19 mg/dL (8-23); Calcium 8.5 mg/dL (8.6-10.3); Carbon Dioxide 24 mEq/L (23-29); Chloride 106 mEq/L (98-107); Glucose 113 mg/dL (70-105); Osmolality,Calculated 289 (280-300); Potassium 3.3 mEq/L (3.5-5.1); Sodium 138 mEq/L (136-145); eGFR For African Americans > 60 (> 60); eGFR For Non-African Americans 59 (> 60)
[2021-03-21] MEDS: Insulin LISPRO 300 UNITS/3 ML VIAL SUBQ SCH ×3 (07:09→17:21)
[2021-03-21] MEDS ORDERED: Potassium Chloride 40 MEQ, Lidocaine 1% 2 ML in 0.9 % Sodium Chloride 500 ML IVPB ONE (07:41)
[2021-03-21] MEDS: Metoprolol 100 MG TABLET PO SCH ×2 (09:11→20:08)
[2021-03-21] MEDS: Furosemide 40 MG TABLET PO SCH (09:11)
[2021-03-21] MEDS ORDERED: Lidocaine -MPF 2% 5 ML VIAL ONE (09:59)
[2021-03-21] MEDS ORDERED: Ondansetron 4 MG/2 ML VIAL ONE (10:31)
[2021-03-21 12:17] LABS: INR 1.5; Prothrombin Time 16.7 Seconds (9.4-12.1)
[2021-03-21] MEDS ORDERED: *HR* Warfarin 2 MG TABLET PO ONE (18:00)
[2021-03-21] MEDS ORDERED: Warfarin perPT PO PRN (18:00)
[2021-03-22 01:43] LABS: Hematocrit 23.6 % (37.5-50.1); Hemoglobin 7.2 g/dL (12.9-16.9); Mean Corpuscular HGB Conc 30.5 g/dL (31.6-35.5); Mean Corpuscular Hemoglobin 30.5 pg (28.0-33.3); Mean Platelet Volume 10.4 fL (9.4-12.4); Platelet Count 191 K/mcL (140-400); Red Blood Count 2.36 M/mcL (4.19-5.50); Red Cell Distribution Width 21.4 % (11.5-14.5); White Blood Count 4.8 K/mcL (4.3-11.1)
[2021-03-22 01:54] LABS: INR 1.4; Prothrombin Time 15.7 Seconds (9.4-12.1)
[2021-03-22 02:19] LABS: Calcium 8.5 mg/dL (8.6-10.3); Potassium 4.3 mEq/L (3.5-5.1)
[2021-03-22 07:52] VITALS: O2SAT 94
[2021-03-22] MEDS: Insulin LISPRO 300 UNITS/3 ML VIAL SUBQ SCH ×2 (08:40→11:09)
[2021-03-22] MEDS: Metoprolol 100 MG TABLET PO SCH (09:11)
[2021-03-22] MEDS: Furosemide 40 MG TABLET PO SCH (09:11)
[2021-03-22 10:14] LABS: Adenovirus Not Detected (Not Detect); Bordetella Pertussis Not Detected (Not Detect); Chlamydophila pneumoniae Not Detected (Not Detect); Coronavirus 229E Not Detected (Not Detect); Coronavirus HKU1 Not Detected (Not Detect); Coronavirus NL63 Not Detected (Not Detect); Coronavirus OC43 Not Detected (Not Detect); Human Metapneumovirus Not Detected (Not Detect); Human Rhinovirus/Enterovirus Not Detected (Not Detect); Influenza A Subtype 2009 H1 Not Detected (Not Detect); Influenza B Not Detected (Not Detect); Mycoplasma pneumoniae Not Detected (Not Detect); Parainfluenza Virus 1 Not Detected (Not Detect); Parainfluenza Virus 2 Not Detected (Not Detect); Parainfluenza Virus 3 Not Detected (Not Detect); Parainfluenza Virus 4 Not Detected (Not Detect); Respiratory Syncytial Virus Not Detected (Not Detect); SARS-CoV-2 Not Detected (Not Detect)
[2021-03-22 10:54] VITALS: BP 115/62; PULSE 48; TEMP 97.7
== END 2021-03-22 14:45 | disposition other institution (70) | DRG 378 ==
LOC: 2ANU 11:12 → EMEROOARM 11:12 → 2ANU 14:53 → SUATTDRO 03-16 15:47 → 2ANU 03-16 23:35
PROVIDERS: ADMIT Internal Medicine; ATTEND Family Medicine

== ENCOUNTER 2021-06-28 19:29 | Inpatient (IN) ==
[2021-06-28] MEDS ORDERED: Isovue-370 500 ML BOTTLE IVP ONE (19:50)
[2021-06-28 20:26] LABS: Basophils % 0.1 %; Eosinophils % 0.1 %; Hematocrit 21.2 % (37.5-50.1); Hemoglobin 6.4 g/dL (12.9-16.9); Lymphocytes # 1.2 K/mcL (0.6-4.6); Lymphocytes % 8.6 %; Mean Corpuscular HGB Conc 30.2 g/dL (31.6-35.5); Mean Corpuscular Hemoglobin 32.8 pg (28.0-33.3); Mean Corpuscular Volume 108.7 fL (83.0-100.0); Mean Platelet Volume 11.6 fL (9.4-12.4); Monocytes % 19.6 %; Neutrophils # 9.5 K/mcL (1.6-8.9); Nucleated Red Blood Cells 0.5 /100 WBC (0); Platelet Count 186 K/mcL (140-400); Red Blood Count 1.95 M/mcL (4.19-5.50); Red Cell Distribution Width 25.7 % (11.5-14.5); Segmented Neutrophils % 70.6 %
[2021-06-28 20:29] LABS: Monocytes # 2.7 K/mcL (0.0-1.3); White Blood Count 13.5 K/mcL (4.3-11.1)
[2021-06-28 20:35] LABS: Bacteria,Urine Few per hpf (None-Few); Bilirubin,Urine Negative (Negative); Blood,Urine Negative (Negative); Clarity,Urine Clear (Clear); Color,Urine Light-Yellow (Yellow); Glucose,Urine (UA) Normal (Normal); Granular Casts,Urine Few per lpf (None Seen); Ketones,Urine Negative (Negative); Leukocyte Esterase,Urine Moderate (Negative); Nitrite,Urine Negative (Negative); PH,Urine 5.5 pH Units (5.0-8.0); Protein,Urine 30 mg/dL (Neg-Trace); RBC,Urine 0-3 per hpf (0-3); Specific Gravity,Urine 1.014 (1.010-1.025); Urobilinogen,Urine Normal (Normal); WBC,Urine 30-50 per hpf (0-3)
[2021-06-28 20:42] LABS: Albumin 3.8 g/dL (3.5-5.7); Albumin/Globulin Ratio 1.5 (1.1-2.2); Bilirubin,Total 0.8 mg/dL (0.3-1.0); Calcium 8.1 mg/dL (8.6-10.3); Globulin 2.5 g/dL (2.4-3.5); Potassium 3.6 mEq/L (3.5-5.1); Total Protein 6.3 g/dL (6.4-8.9)
[2021-06-28 20:44] LABS: Anisocytosis 3+ (Not Present); Hypochromasia Present (Not Present); Microcytosis Present (Not Present); Platelet Estimate Normal (Normal)
[2021-06-28 20:45] LABS: Tear Drop Cells 1+ (Not Present)
[2021-06-28] MEDS ORDERED: 0.9 % Sodium Chloride 1,000 ML IV ONE (22:49)
[2021-06-28] MEDS ORDERED: Ondansetron 4 MG/2 ML VIAL IVP PRN (23:46)
[2021-06-28] MEDS ORDERED: Naloxone 0.4 MG/ML INJ IVP PRN (23:46)
[2021-06-29] MEDS ORDERED: *HR* Dextrose 50 % in Water (Syg) 50 ML SYRINGE IVP PRN (00:28)
[2021-06-29] MEDS ORDERED: D5% in Water 1,000 ML IVC PRN (00:28)
[2021-06-29] MEDS ORDERED: Dextrose Gel 15 GM/37.5 ML TUBE PO PRN ×2 (00:28)
[2021-06-29 04:19] LABS: Hematocrit 22.3 % (37.5-50.1); Mean Corpuscular HGB Conc 31.4 g/dL (31.6-35.5); Mean Corpuscular Hemoglobin 33.5 pg (28.0-33.3); Mean Corpuscular Volume 106.7 fL (83.0-100.0); Mean Platelet Volume 11.1 fL (9.4-12.4); Platelet Count 168 K/mcL (140-400); Red Blood Count 2.09 M/mcL (4.19-5.50); Red Cell Distribution Width 25.2 % (11.5-14.5); White Blood Count 12.5 K/mcL (4.3-11.1)
[2021-06-29 04:23] LABS: Calcium 8.2 mg/dL (8.6-10.3); Potassium 3.5 mEq/L (3.5-5.1)
[2021-06-29] MEDS: cefTRIAXone 1,000 MG in 0.9 % Sodium Chloride Mini Bag 100 ML IVPB SCH (05:54)
[2021-06-29] MEDS: 0.9 % Sodium Chloride 1,000 ML IVC SCH ×2 (05:55→17:58)
[2021-06-29] MEDS: Insulin LISPRO 300 UNITS/3 ML VIAL SUBQ SCH ×3 (09:48→17:06)
[2021-06-29 16:58] LABS: Hematocrit 25.6 % (37.5-50.1); Hemoglobin 7.8 g/dL (12.9-16.9); Mean Corpuscular HGB Conc 30.5 g/dL (31.6-35.5); Mean Corpuscular Hemoglobin 33.2 pg (28.0-33.3); Mean Corpuscular Volume 108.9 fL (83.0-100.0); Mean Platelet Volume 11.8 fL (9.4-12.4); Platelet Count 173 K/mcL (140-400); Red Blood Count 2.35 M/mcL (4.19-5.50); Red Cell Distribution Width 26.5 % (11.5-14.5); White Blood Count 11.7 K/mcL (4.3-11.1)
[2021-06-29 17:13] LABS: INR 1.3; Prothrombin Time 14.2 Seconds (9.4-12.1)
[2021-06-29] MEDS: Pantoprazole 40 MG VIAL IVP SCH (17:58)
[2021-06-29 22:44] LABS: blaKPC Carbapenem-Resist Gene Not Detected (Not Detect)
[2021-06-29 22:45] LABS: Acinetobacter baumannii by PCR Not Detected (Not Detect); Candida albicans by PCR Not Detected (Not Detect); Candida glabrata by PCR Not Detected (Not Detect); Candida krusei by PCR Not Detected (Not Detect); Candida parapsilosis by PCR Not Detected (Not Detect); Candida tropicalis by PCR Not Detected (Not Detect); Enterobacter cloacae Cmplx PCR Not Detected (Not Detect); Enterobacteriaceae by PCR Not Detected (Not Detect); Enterococcus by PCR Not Detected (Not Detect); Escherichia coli by PCR Not Detected (Not Detect); Klebsiella oxytoca by PCR Not Detected (Not Detect); Klebsiella pneumoniae by PCR DETECTED (Not Detect); Proteus by PCR Not Detected (Not Detect); Pseudomonas aeruginosa by PCR Not Detected (Not Detect); Serratia marcescens by PCR Not Detected (Not Detect); Staphylococcus aureus by PCR Not Detected (Not Detect); Staphylococcus by PCR Not Detected (Not Detect); Streptococcus agalactiae(B)PCR Not Detected (Not Detect); Streptococcus by PCR Not Detected (Not Detect); Streptococcus pneumoniae PCR Not Detected (Not Detect); Streptococcus pyogenes (A) PCR Not Detected (Not Detect)
[2021-06-30 05:02] LABS: Basophils % 0.1 %; Eosinophils % 0.4 %; Hematocrit 19.7 % (37.5-50.1); Hemoglobin 6.4 g/dL (12.9-16.9); Immature Granulocytes % 1.2 % (0-4); Lymphocytes # 1.5 K/mcL (0.6-4.6); Lymphocytes % 18.5 %; Mean Corpuscular HGB Conc 32.5 g/dL (31.6-35.5); Mean Corpuscular Hemoglobin 34.6 pg (28.0-33.3); Mean Corpuscular Volume 106.5 fL (83.0-100.0); Mean Platelet Volume 11.8 fL (9.4-12.4); Monocytes # 1.9 K/mcL (0.0-1.3); Monocytes % 22.9 %; Neutrophils # 4.7 K/mcL (1.6-8.9); Nucleated Red Blood Cells 0.4 /100 WBC (0); Platelet Count 145 K/mcL (140-400); Red Blood Count 1.85 M/mcL (4.19-5.50); Red Cell Distribution Width 25.7 % (11.5-14.5); Segmented Neutrophils % 56.9 %; White Blood Count 8.2 K/mcL (4.3-11.1)
[2021-06-30 05:22] LABS: Calcium 7.9 mg/dL (8.6-10.3); Potassium 3.6 mEq/L (3.5-5.1)
[2021-06-30 05:37] LABS: Anisocytosis 2+ (Not Present); Macrocytosis Present (Not Present); Platelet Estimate Normal (Normal)
[2021-06-30] MEDS: Pantoprazole 40 MG VIAL IVP SCH ×2 (06:47→17:24)
[2021-06-30] MEDS: cefTRIAXone 1,000 MG in 0.9 % Sodium Chloride Mini Bag 100 ML IVPB SCH (06:49)
[2021-06-30] MEDS ORDERED: 0.9 % Sodium Chloride 250 ML IVC SCH ×2 (07:45→16:45)
[2021-06-30] MEDS: Insulin LISPRO 300 UNITS/3 ML VIAL SUBQ SCH ×3 (09:28→17:24)
[2021-06-30 16:13] LABS: Hematocrit 21.8 % (37.5-50.1); Hemoglobin 6.8 g/dL (12.9-16.9); Mean Corpuscular HGB Conc 31.2 g/dL (31.6-35.5); Mean Corpuscular Hemoglobin 32.7 pg (28.0-33.3); Mean Corpuscular Volume 104.8 fL (83.0-100.0); Mean Platelet Volume 12.3 fL (9.4-12.4); Platelet Count 144 K/mcL (140-400); Red Blood Count 2.08 M/mcL (4.19-5.50); Red Cell Distribution Width 26.1 % (11.5-14.5); White Blood Count 7.5 K/mcL (4.3-11.1)
[2021-06-30] MEDS ORDERED: Acetaminophen 325 MG TABLET PO PRN (16:36)
[2021-06-30] MEDS: Sennosides/Docusate Sodium TABLET PO PRN (17:23)
[2021-07-01 04:42] LABS: Basophils % 0.5 %; Eosinophils # 0.1 K/mcL (0.0-0.6); Eosinophils % 1.2 %; Hematocrit 23.2 % (37.5-50.1); Hemoglobin 7.6 g/dL (12.9-16.9); Immature Granulocytes % 1.9 % (0-4); Lymphocytes % 23.2 %; Mean Corpuscular HGB Conc 32.8 g/dL (31.6-35.5); Mean Corpuscular Volume 100.9 fL (83.0-100.0); Mean Platelet Volume 11.2 fL (9.4-12.4); Monocytes % 21.5 %; Platelet Count 132 K/mcL (140-400); Red Cell Distribution Width 26.9 % (11.5-14.5); Segmented Neutrophils % 51.7 %; White Blood Count 5.8 K/mcL (4.3-11.1)
[2021-07-01 04:47] LABS: Lymphocytes # 1.4 K/mcL (0.6-4.6); Monocytes # 1.3 K/mcL (0.0-1.3)
[2021-07-01 05:02] LABS: Potassium 3.8 mEq/L (3.5-5.1)
[2021-07-01 05:04] LABS: Anisocytosis 1+ (Not Present); Platelet Estimate Normal (Normal); Poikilocytosis 1+ (Not Present); Toxic Granulation Present (Not Present)
[2021-07-01] MEDS: Pantoprazole 40 MG VIAL IVP SCH ×2 (06:48→17:35)
[2021-07-01] MEDS: cefTRIAXone 1,000 MG in 0.9 % Sodium Chloride Mini Bag 100 ML IVPB SCH (06:48)
[2021-07-01] MEDS: Sennosides/Docusate Sodium TABLET PO PRN ×2 (08:37→22:18)
[2021-07-01] MEDS: Insulin LISPRO 300 UNITS/3 ML VIAL SUBQ SCH ×3 (08:37→17:36)
[2021-07-01] MEDS ORDERED: polyethylene glycoL 3350 17 GM POWD.PACK PO PRN (15:04)
[2021-07-01 16:12] LABS: Immature Reticulocyte % 10.7 % (11.0-38.0); Retculocyte # 0.01 M/mcL (0.05-0.10); Reticulocyte % 0.5 % (1.6-2.8)
[2021-07-01 16:31] LABS: Bilirubin,Direct 0.2 mg/dL (0.0-0.2); Bilirubin,Indirect 0.3 mg/dL (0.0-1.0); Bilirubin,Total 0.5 mg/dL (0.3-1.0)
[2021-07-02 04:24] LABS: Basophils % 0.6 %; Eosinophils # 0.1 K/mcL (0.0-0.6); Eosinophils % 2.6 %; Hematocrit 22.6 % (37.5-50.1); Hemoglobin 7.2 g/dL (12.9-16.9); Lymphocytes # 1.4 K/mcL (0.6-4.6); Mean Corpuscular HGB Conc 31.9 g/dL (31.6-35.5); Mean Corpuscular Hemoglobin 32.7 pg (28.0-33.3); Mean Corpuscular Volume 102.7 fL (83.0-100.0); Mean Platelet Volume 11.5 fL (9.4-12.4); Monocytes # 1.1 K/mcL (0.0-1.3); Monocytes % 19.5 %; Neutrophils # 2.7 K/mcL (1.6-8.9); Nucleated Red Blood Cells 0.4 /100 WBC (0); Platelet Count 138 K/mcL (140-400); Red Cell Distribution Width 26.3 % (11.5-14.5); Segmented Neutrophils % 49.3 %; White Blood Count 5.4 K/mcL (4.3-11.1)
[2021-07-02 04:41] LABS: Calcium 8.1 mg/dL (8.6-10.3); Potassium 3.9 mEq/L (3.5-5.1)
[2021-07-02 04:48] LABS: Anisocytosis 1+ (Not Present); Platelet Estimate Normal (Normal)
[2021-07-02] MEDS: Pantoprazole 40 MG VIAL IVP SCH ×2 (06:25→17:21)
[2021-07-02] MEDS: cefTRIAXone 1,000 MG in 0.9 % Sodium Chloride Mini Bag 100 ML IVPB SCH (06:25)
[2021-07-02] MEDS: Sennosides/Docusate Sodium TABLET PO PRN (08:14)
[2021-07-02] MEDS: Insulin LISPRO 300 UNITS/3 ML VIAL SUBQ SCH ×3 (08:15→17:22)
[2021-07-02] MEDS ORDERED: cefTRIAXone 1,000 MG in 0.9 % Sodium Chloride Mini Bag 100 ML IVPB ONE (15:13)
[2021-07-03 05:17] LABS: Basophils % 0.6 %; Eosinophils # 0.2 K/mcL (0.0-0.6); Eosinophils % 4.2 %; Hematocrit 22.2 % (37.5-50.1); Hemoglobin 7.2 g/dL (12.9-16.9); Lymphocytes # 1.6 K/mcL (0.6-4.6); Lymphocytes % 31.3 %; Mean Corpuscular HGB Conc 32.4 g/dL (31.6-35.5); Mean Corpuscular Volume 101.8 fL (83.0-100.0); Mean Platelet Volume 11.5 fL (9.4-12.4); Monocytes # 0.9 K/mcL (0.0-1.3); Monocytes % 17.2 %; Neutrophils # 2.2 K/mcL (1.6-8.9); Nucleated Red Blood Cells 0.4 /100 WBC (0); Platelet Count 151 K/mcL (140-400); Red Blood Count 2.18 M/mcL (4.19-5.50); Red Cell Distribution Width 25.2 % (11.5-14.5); Segmented Neutrophils % 44.7 %
[2021-07-03] MEDS: Pantoprazole 40 MG VIAL IVP SCH (05:34)
[2021-07-03 05:36] LABS: Potassium 3.8 mEq/L (3.5-5.1)
[2021-07-03] MEDS ORDERED: 0.9 % Sodium Chloride 250 ML IVC SCH ×2 (07:30→10:00)
[2021-07-03] MEDS: Insulin LISPRO 300 UNITS/3 ML VIAL SUBQ SCH ×3 (08:33→17:06)
[2021-07-03] MEDS: cefTRIAXone 2,000 MG in 0.9 % Sodium Chloride Mini Bag 100 ML IVPB SCH (08:39)
[2021-07-03 18:44] LABS: Hematocrit 26.3 % (37.5-50.1); Hemoglobin 7.9 g/dL (12.9-16.9)
[2021-07-04 05:44] LABS: Basophils % 0.6 %; Eosinophils # 0.2 K/mcL (0.0-0.6); Eosinophils % 3.3 %; Hemoglobin 7.4 g/dL (12.9-16.9); Immature Granulocytes % 2.3 % (0-4); Lymphocytes # 1.3 K/mcL (0.6-4.6); Mean Corpuscular HGB Conc 30.8 g/dL (31.6-35.5); Mean Corpuscular Hemoglobin 31.5 pg (28.0-33.3); Mean Corpuscular Volume 102.1 fL (83.0-100.0); Mean Platelet Volume 11.7 fL (9.4-12.4); Monocytes % 19.4 %; Neutrophils # 2.5 K/mcL (1.6-8.9); Nucleated Red Blood Cells 0.4 /100 WBC (0); Platelet Count 150 K/mcL (140-400); Red Blood Count 2.35 M/mcL (4.19-5.50); Red Cell Distribution Width 24.6 % (11.5-14.5); Segmented Neutrophils % 48.4 %; White Blood Count 5.1 K/mcL (4.3-11.1)
[2021-07-04 06:03] LABS: Calcium 8.1 mg/dL (8.6-10.3); Potassium 3.8 mEq/L (3.5-5.1)
[2021-07-04 06:40] LABS: Anisocytosis 2+ (Not Present)
[2021-07-04 06:41] LABS: Platelet Estimate Normal (Normal); Poikilocytosis 1+ (Not Present)
[2021-07-04] MEDS: Insulin LISPRO 300 UNITS/3 ML VIAL SUBQ SCH ×2 (08:34→12:17)
[2021-07-04] MEDS: cefTRIAXone 2,000 MG in 0.9 % Sodium Chloride Mini Bag 100 ML IVPB SCH (08:37)
[2021-07-04 12:50] VITALS: BP 119/68; PULSE 72; TEMP 97.8; O2SAT 100
[2021-07-04 14:14] LABS: Hematocrit 26.8 % (37.5-50.1); Hemoglobin 8.5 g/dL (12.9-16.9)
[2021-07-04 15:13] LABS: Lambda Qnt Free Light Chains 40.01 mg/L (5.71-26.30)
[2021-07-04 15:15] LABS: Kappa Qnt Free Light Chains 49.5 mg/L (3.30-19.40)
[2021-07-04 15:19] LABS: Influenza A PCR Negative (Negative); Influenza B PCR Negative (Negative); Resp. Syncytial Virus PCR Negative (Negative)
[2021-07-04 15:26] LABS: SARS-CoV-2 by PCR (In House) Negative (Negative)
== END 2021-07-04 16:25 | disposition critical access hospital (66) | DRG 698 ==
LOC: EMEROOARM 19:29 → 4WAOSI 19:29 → SUATTDRO 23:12 → 4WAOSI 06-29 00:35 → SUATTDRO 06-30 15:40
PROVIDERS: ADMIT Internal Medicine; ATTEND Internal Medicine